=== PATIENT | female | born 1955 | race Caucasian/White ===

== ENCOUNTER 2018-08-11 12:25 | Outpatient (CLI) | payer OTHER, SELFPAY ==
[2018-08-11 13:57] LABS: ALT 23 U/L (12-78); AST 19 U/L (15-37); Albumin 3.7 g/dL (3.4-5.0); Alkaline Phosphatase 61 U/L (46-116); Anion Gap 10.2 mmol/L (3-11); BUN 18 mg/dL (7-18); Bilirubin, Total 0.5 mg/dL (0.2-1.0); CO2 26.8 mmol/L (21.0-32.0); CREATININE 0.81 mg/dL (0.55-1.02); Calcium 9.4 mg/dL (8.5-10.1); Chloride 101 mmol/L (98-107); Cholesterol 207 mg/dL (50-200); Glucose 100 mg/dL (70-100); HDL Cholesterol 85 mg/dL (40-60); LDL CHOLESTEROL 105 mg/dL (<100); Potassium 4.4 mmol/L (3.5-5.1); Sodium 138 mmol/L (136-145); TSH (W/Ref FT4) 0.07 uIU/mL (0.358-3.74); Triglyceride 128 mg/dL (30-150)
[2018-08-11 14:18] LABS: FREE T4 1.53 ng/dL (0.76-1.46)
[2018-08-12 11:28] LABS: Hepatitis C Ab w Rflx HCV PCR Negative (NEGAT)
[2018-08-13 15:14] LABS: Chlamydia Result Negative; GC Result Negative; Specimen Description URINE
== END 2018-08-11 12:45 ==
DX: E03.9 Hypothyroidism, unspecified (principal); R63.4 Abnormal weight loss; Z11.59 Encounter for screening for other viral diseases; Z11.3 Encounter for screening for infections with a predominantly sexual mode of transmission
CPT/HCPCS: 80053; 80061; 83721; 86803; 87491; 87591; 84439; 84443

== ENCOUNTER 2018-10-13 09:59 | Outpatient (CLI) | payer BC, SELFPAY ==
[2018-10-13 15:14] LABS: TSH (W/Ref FT4) 1.23 uIU/mL (0.358-3.74)
== END 2018-10-13 10:19 ==
LOC: LBN 10:00 → LBO 10:01
DX: E03.9 Hypothyroidism, unspecified (principal); G47.00 Insomnia, unspecified
CPT/HCPCS: 36415; 84443

== ENCOUNTER 2019-01-14 02:53 | Outpatient (CLI) | payer BC, SELFPAY ==
[2019-01-14 09:11] LABS: ALT 30 U/L (12-78); AST 19 U/L (15-37); Albumin 3.5 g/dL (3.4-5.0); Alkaline Phosphatase 70 U/L (46-116); Anion Gap 9.2 mmol/L (3-11); BUN 23 mg/dL (7-18); Bilirubin, Total 0.4 mg/dL (0.2-1.0); CO2 29.8 mmol/L (21.0-32.0); CREATININE 0.91 mg/dL (0.55-1.02); Chloride 104 mmol/L (98-107); Cholesterol 265 mg/dL (50-200); Glucose 103 mg/dL (70-100); HDL Cholesterol 94 mg/dL (40-60); LDL CHOLESTEROL 151 mg/dL (<100); Potassium 4.2 mmol/L (3.5-5.1); Sodium 143 mmol/L (136-145); TSH (W/Ref FT4) 3.61 uIU/mL (0.358-3.74); Triglyceride 62 mg/dL (30-150)
== END 2019-01-14 03:13 ==
DX: E03.9 Hypothyroidism, unspecified (principal); E78.5 Hyperlipidemia, unspecified; F32.9 Major depressive disorder, single episode, unspecified
CPT/HCPCS: 36415; 80053; 80061; 83721; 84443

== ENCOUNTER 2019-02-01 01:38 | Outpatient (CLI) | payer BC, SELFPAY ==
--- NOTE | 2019-02-01 07:45 | DI.MAMMO_ITS ---
SYMPTOM/DIAGNOSIS: SCREENING, Z12.31 MAMMOGRAMS: Mammograms were interpreted according to the usual protocol including computer analysis with CAD system, tomosynthesis and C view imaging. Comparison is made with prior examinations. Breast density, Category C. No suspicious microcalcifications are seen. No suspicious masses are seen in the right breast. There are two areas of breast asymmetry, one in the outer left breast on the craniocaudad view and one in the posterior superior left breast on the mediolateral oblique view. These areas should be further evaluated with spot compression views. Ultrasound may be indicated at that time. IMPRESSION: Additional views of the left breast as described above. Category 0. MQSA ASSESSMENT OF FINDINGS: Incomplete: Needs additional imaging evaluation. Category 0. Patient will receive a letter notifying them of these results. Bi-RADS category C. The breasts are heterogeneously dense, which may obscure small masses.
== END 2019-02-01 01:58 ==
DX: Z12.31 Encounter for screening mammogram for malignant neoplasm of breast (principal); R92.8 Other abnormal and inconclusive findings on diagnostic imaging of breast
CPT/HCPCS: 77063; 77067

== ENCOUNTER 2019-02-11 01:32 | Outpatient (CLI) | payer BC, SELFPAY ==
--- NOTE | 2019-02-11 10:35 | DI.COMBO_ITS ---
SYMPTOMS/DIAGNOSIS: F/U MAMMO, TWO AREAS OF BREAST ASYMMETRY LT ADDITIONAL MAMMOGRAPHIC VIEWS LEFT BREAST AND LEFT BREAST ULTRASOUND: Additional images are interpreted according to the usual protocol including tomosynthesis and 2D imaging. Additional views of the left breast and left breast ultrasound are interpreted in conjunction. These examinations were obtained to evaluate questionable areas of asymmetry density or nodularity seen on recent mammogram. Additional mammographic views fail to show a discrete mass. Breast ultrasound shows no evidence of a mass or cyst. CONCLUSION: No specific evidence of malignancy at this time. Follow up unilateral left breast mammogram recommended in 6 months. Category 3. Breast density Category B. MQSA ASSESSMENT OF FINDINGS: Probably benign. Six month follow-up recommended. Category 3. Patient will receive a letter notifying them of these results. BI-RADS category B. There are scattered areas of fibroglandular density.
== END 2019-02-11 01:52 ==
DX: Z12.31 Encounter for screening mammogram for malignant neoplasm of breast (principal); R92.8 Other abnormal and inconclusive findings on diagnostic imaging of breast; N64.59 Other signs and symptoms in breast
CPT/HCPCS: 76642; 77063; 77067

== ENCOUNTER 2019-02-18 11:51 | Outpatient (CLI) | payer BC, SELFPAY ==
[2019-02-18 12:54] LABS: Clarity Sl Cloudy
[2019-02-18 12:55] LABS: Glucose Color Interference mg/dL (Negative); Ketones Color Interference mg/dL (Negative); Leukocyte Esterase Color Interference (Negative); Nitrite Color Interference (Negative)
[2019-02-18 12:56] LABS: Bilirubin Color Interference (Negative); Blood Color Interference (Negative); Urobilinogen Color Interference EU/dL (Up TO 0.2)
[2019-02-18 12:59] LABS: Bacteria Few HPF (Negative); C & S Indicated? Yes; Casts Negative LPF (Negative); Crystals Negative HPF (Negative); Epithelial Cells Moderate HPF (Negative); Mucus Negative (Negative); RBC 20-50 (0-2); WBC 20-50 HPF (0-5)
== END 2019-02-18 12:11 ==
PROVIDERS: Visit Provider Family Medicine
DX: R35.0 Frequency of micturition (principal)
CPT/HCPCS: 81003; 81015; 87086

== ENCOUNTER 2019-08-16 01:21 | Outpatient (CLI) | payer BC, SELFPAY ==
--- NOTE | 2019-08-16 09:50 | DI.MAMMO_ITS ---
EXAM: MG MAMMO DIAGNOSTIC UNI CLINICAL HISTORY: 6 MONTH F/U Z09, R92.8 ABNORMAL FINDINGS TECHNIQUE: Bilateral full field digital CC and MLO mammographic images were obtained with 3D tomosyn thesis and utilizing computer aided detection (CAD). COMPARISON: 02/01/19 and 02/11/19 as well as exams back to 2008. FINDINGS: Left breast is composed of heterogeneously dense fibroglandular tissue, breast density category C. No suspicious mass or suspicious microcalcifications are seen. The previously questioned areas of as ymmetry are not appreciated on the current exam. IMPRESSION: Category 1, negative mammogram. Bilateral screening should be resumed in 6 months. BI-RADS Cat 1 - Negative. Breast Density - Category C - Heterogeneously dense.
== END 2019-08-16 01:41 ==
DX: Z12.31 Encounter for screening mammogram for malignant neoplasm of breast (principal); R92.8 Other abnormal and inconclusive findings on diagnostic imaging of breast; N64.59 Other signs and symptoms in breast
CPT/HCPCS: 77061; 77065; G0279

== ENCOUNTER 2020-04-11 08:18 | Outpatient (CLI) | payer BC, SELFPAY ==
--- NOTE | 2020-04-11 09:45 | DI.RAD_ITS ---
EXAM: XR HAND RT COMPLETE CLINICAL HISTORY: nodule right hand. TECHNIQUE: 2D digital imaging was performed. COMPARISON: No exams were available for comparison FINDINGS: BONES: No acute fracture is present. No bony destructive lesion is seen. JOINTS: Marked osteoarthritis is present characterized by joint space narrowing, subchondral sclerosi s and marginal osteophytes. The findings are most marked at the PIP joint of the index finger and th e DIP joints the middle, ring and little fingers. The metacarpophalangeal joints are well maintained . Mild degenerative changes are seen at the 1st CMC joint characterized by marginal osteophytes. SOFT TISSUE: No suspicious soft tissue calcifications are present. There is soft tissue swelling of the fingers particularly the PIP and DIP joints. IMPRESSION: Severe osteoarthritis of the hand. DATA REPOSITORY: RADIATION DOSE DELIVERED:
== END 2020-04-11 08:38 ==
PROVIDERS: Visit Provider Physician Assistant Surgical
DX: M18.11 Unilateral primary osteoarthritis of first carpometacarpal joint, right hand (principal); M19.041 Primary osteoarthritis, right hand; M25.741 Osteophyte, right hand
CPT/HCPCS: 73130

== ENCOUNTER 2020-04-23 08:30 | Day surgery (SDC) | payer BC, SELFPAY ==
[2020-04-23 08:44] VITALS: BP 125/76; PULSE 71; RESP 16; TEMP 36.4; O2SAT 97
--- NOTE | 2020-04-23 10:23 | SKI_PTH ---
PATIENT: Barbara Richards LOC: [facility] U#:[id number] AGE/SX: 64/F ROOM: RE04/23/[address]: Abelardo Mederos MD : 1955 BED: DIS: 04/23/2020 SPEC #: [id number] RECD: 04/23/20 12:30 STATUS: TIARA REQ #: [id number] ALANA: 04/23/20 10:[address]: Abelardo Mederos DEPT: Surgical Specimen RECD BY: Lashay Devries ENTERED: 04/23/20 12:30 SP TYPE: JAYE ELY DR: Ana Paula Wallis APRN Tissues: 1 - SKIN BIOPSY(SHAVE/PUNCH) Procedures: GROSS AND MICRO LEVEL 4 Comments: [id number]
[2020-04-23] MEDS: Lidocaine 2% Multi-Dose 50 ML VIAL (10:25)
--- NOTE | 2020-04-23 10:39 | W.PM.DSUDISC ---
Discharge Plan Disposition Patient Disposition: HOME Condition: Good Discharge Details Reason For Visit: EXCISION SUBCUTANEOUS MASS R THUMB Attending Provider: Abelardo Mederos Primary Care Provider: Ana Paula Wallis Home Meds and New Rx's Prescriptions: Continued conjugated estrogens 0.625 mg/gram cream 1 applic Vaginal DAILY Qty: 30 RF: 2 clobetasol 0.05 % cream 1 applic TP QAM AND QPM PRN (Reason: vaginitis) 14 Days Qty: 30 RF: 2 Ywkbsdve-Ozmayi-YVJ with vit D 1 EACH tablet 1 ea PO DAILY Qty: 2 RF: 0 scopolamine base 1 mg over 3 days patch 3 day 1 patch TD Q72H PRN (Reason: nausea and vomiting) Qty: 4 RF: 0 acyclovir 5 % ointment 1 applic Topical BID PRN (Reason: cold sores) Qty: 1 RF: 4 levothyroxine 100 mcg tablet 100 mcg PO DAILY Qty: 90 RF: 4 paroxetine HCl [Paxil] 10 mg tablet 10 mg PO DAILY Qty: 90 RF: 4 simvastatin 20 mg tablet 20 mg PO HS Qty: 90 RF: 4 triamcinolone acetonide 0.5 % cream 1 applic Topical dailyprn Qty: 15 RF: 0 Discharge Instructions Additional Instructions: kEEP DRESSINGS DRY AND INTACT R THUMB. May remove dressings on . May shower or bathe and get incision wet. Can then cover incision with band-aid. Don't be concerned if their is some bleeding through the dressing. Follow up with in 2 weeks. Take tylenol or ibuprofen for pain. Referrals: Abelardo Mederos MD [ [facility] STAFF PHYSICIAN] - (f/u in 2 weeks) Activity:: Activity as Tolerated Remove Dressings/Wound Care:: 72 hours Shower/Bathe:: 72 hours Diet:: As Tolerated Discharge Orders Discharge Orders: Discharge Order (Routine); Ordered 04/23/20 Ordered By: Abelardo Mederos DS: Diagnosis Discharge Diagnosis (1) Mass of skin of right thumb: Status: Acute
--- NOTE | 2020-04-23 15:31 | ROE_ITS ---
Date of service: 04/23/20 Time of Service: 12:09 Operative Note Operative Note DATE OF PROCEDURE: 04/23/20 PRE-OP DIAGNOSIS: Subcutaneous mass right thumb POST-OP DIAGNOSIS: same PROCEDURE: Excisional biopsy of subtenons mass right thumb SURGEON: Abelardo Mederos ANESTHESIA: local PATHOLOGY: other COMPLICATIONS: None Patient was transported to: same day Patient's condition: stable Indications: Rebel is a 64-year-old white female who presents with a mass on the dorsal aspect of the IP joint of the right thumb. 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 She does not have any significant pain with moving her thumb. She says that she thinks the mass increases and decreases in size. Is been present for 2-1/2 months. She does remember any particular trauma. She would like to have it removed. I thought it might represent a ganglion cyst. I recommended excisional biopsy to obtain a definitive diagnosis and alleviate her symptoms. Risk complications of the procedure explained patient detail preop. Procedure Description: Patient taken the operating room on 04/23/2020 and placed supine operative table. The right hand was prepped and draped free in usual sterile fashion. I infiltrated around the nodule with 1% Xylocaine solution. I made an incision just proximal to the cuticle of the fingernail of the right thumb. I then brought the incision around the ulnar margin of the mass and then backed around to the radial side and extending distally in the midline. I used a Nikki tourniquet around the proximal thumb. I made the incision full- thickness down to the extensor tendon of the thumb. As the flap of skin with the attached mass was elevated towards the radial side I noted that it was a chelsy id mass of connective tissue. I sharply dissected the mass off the extensor tendon. I then dissected the mass sharply off the overlying skin. The mass was sent for pathologic examination. It was probably a centimeter in diameter. The wound was irrigated with saline solution the wound margins were infiltrated with 0.5% Marcaine with epinephrine solution. Skin is approximated interrupted 4 nyl on sutures. Wounds dressed with Xeroform gauze. The Nikki tourniquet was released hemostasis obtained with pressure. The thumb was dressed with tube gauze. Tolerated procedure well and was discharged to day surgery unit in good condition. Patient was discharged home from day surgery unit with instructions to keep her dressings dry for 72 hours. She was told to expect some oozing of blood through the dressing. She can remove his dressings after 72 hours. After she removes the dressing, she may shower bathe and get incision wet. She can dress incision with a Band-Aid at that point. She will take ibuprofen and Tylenol for pain. She may use the thumb as much as discomfort allows. She should follow-up with Dr. Mederos in 2 weeks.
== END 2020-04-23 11:13 | disposition home or self-care (01) ==
PROVIDERS: Visit Provider Orthopaedic Surgery
PROC: (CPT 26160; principal; 2020-04-23 10:30)
DX: M67.441 Ganglion, right hand (principal)
CPT/HCPCS: 26160; 88305

== ENCOUNTER 2020-07-27 01:53 | Outpatient (CLI) | payer BC, SELFPAY ==
[2020-07-27 09:08] LABS: ALT 25 U/L (14-59); AST 17 U/L (15-37); Albumin 3.6 g/dL (3.4-5.0); Alkaline Phosphatase 50 U/L (46-116); Anion Gap 5.3 mmol/L (3-11); BUN 17 mg/dL (7-18); Bilirubin, Total 0.3 mg/dL (0.2-1.0); CO2 30.7 mmol/L (21.0-32.0); CREATININE 0.92 mg/dL (0.55-1.02); Calculated LDL 150 mg/dL (<100); Chloride 106 mmol/L (98-107); Cholesterol 253 mg/dL (<200); Glucose 100 mg/dL (74-106); HDL Cholesterol 83 mg/dL (40-60); Potassium 4.2 mmol/L (3.5-5.1); Sodium 142 mmol/L (136-145); TSH (W/Ref FT4) 2.27 uIU/mL (0.36-3.74); Total Protein 6.9 g/dL (6.4-8.2); Triglyceride 102 mg/dL (<150)
== END 2020-07-27 02:13 ==
DX: Z00.00 Encounter for general adult medical examination without abnormal findings (principal); E03.9 Hypothyroidism, unspecified; E78.5 Hyperlipidemia, unspecified; F32.9 Major depressive disorder, single episode, unspecified
CPT/HCPCS: 36415; 80053; 80061; 84443

== ENCOUNTER 2020-09-04 11:08 | Outpatient (REF) | payer BC, SELFPAY ==
--- NOTE | 2020-09-04 07:40 | PAPFT_PTH ---
PATIENT: Barbara Richards LOC: [facility] U#:[id number] AGE/SX: 64/F ROOM: RE09/04/[address]: Ana Paula Wallis APRN : 1955 BED: DIS: 09/04/2020 SPEC #: [id number] RECD: 09/04/20 12:53 STATUS: TIARA REVicky #: [id number] ALANA: 09/04/20 07:[address]: Ana Paula Wallis DEPT: [facility] Cytology RECD BY: Lashay Devries Tissues: 1 - CX/ENDOCX FOR PAP SMEARS Procedures: PAP THIN PREP/UVM Screening HPV DNA PROBE Comments: [id number]
== END 2020-09-04 11:28 ==
LOC: LBN 11:08
DX: Z12.4 Encounter for screening for malignant neoplasm of cervix (principal); Z11.51 Encounter for screening for human papillomavirus (HPV)
CPT/HCPCS: 88142; 87624

== ENCOUNTER 2020-09-11 00:24 | Outpatient (CLI) | payer BC, SELFPAY ==
--- NOTE | 2020-09-11 06:45 | DI.MAMMO_ITS ---
EXAM: MG MAMMO SCREENING CLINICAL HISTORY: screening,Z12.39 TECHNIQUE: Mammograms were interpreted according to the usual protocol including computer analysis w [employer] CAD system, tomosynthesis and C-view imaging. COMPARISON: FINDINGS: The breasts are of moderate density with fairly symmetrical distribution of fibroglandular tissue. N o dominant mass or clumped microcalcification is identified in either breast. The current examinatio n it is is compared with previous examinations including January 2019 and there has been no gross inter noe change in appearance in comparison with the prior studies. IMPRESSION: No specific evidence of malignancy at this time. Routine screening examinations are suggested at yea rly intervals in this age group according to the ACS ACR guidelines. BI-RADS Category 1 - Negative Breast Density - Category B - Scattered areas of fibroglandular density
== END 2020-09-11 00:44 ==
DX: Z12.31 Encounter for screening mammogram for malignant neoplasm of breast (principal)
CPT/HCPCS: 77063; 77067

== ENCOUNTER 2021-03-04 02:26 | Outpatient (CLI) | payer MEDICARE, SELFPAY ==
[2021-03-04 12:51] LABS: ALT 22 U/L (14-59); AST 16 U/L (15-37); Albumin 3.8 g/dL (3.4-5.0); Alkaline Phosphatase 57 U/L (46-116); Anion Gap 12.2 mmol/L (3-11); BUN 18 mg/dL (7-18); Bilirubin, Total 0.3 mg/dL (0.2-1.0); CO2 24.8 mmol/L (21.0-32.0); CREATININE 0.9 mg/dL (0.55-1.02); Calculated LDL 126 mg/dL (<100); Chloride 105 mmol/L (98-107); Cholesterol 239 mg/dL (<200); Glucose 118 mg/dL (74-106); HDL Cholesterol 86 mg/dL (40-60); Potassium 4.1 mmol/L (3.5-5.1); Sodium 142 mmol/L (136-145); Triglyceride 139 mg/dL (<150)
== END 2021-03-04 02:27 | disposition home or self-care (01) ==
LOC: LBO 02:26
DX: E03.9 Hypothyroidism, unspecified (principal); R19.7 Diarrhea, unspecified; R63.4 Abnormal weight loss; E78.5 Hyperlipidemia, unspecified
CPT/HCPCS: 36415; 80053; 80061; 84439; 84443

== ENCOUNTER 2021-03-05 15:03 | Outpatient (REF) | payer MEDICARE, SELFPAY ==
[2021-03-05 18:10] LABS: Abs Immature Grans 0.01 10^3/uL (0.0-0.06); Absolute Basophil Count 0.04 10^3/uL (0.0-0.2); Absolute Eosinophil Count 0.03 10^3/uL (0.0-0.7); Absolute Lymphocyte Count 2.39 10^3/uL (1.2-3.4); Absolute Monocyte Count 0.44 10^3/uL (0.1-0.8); Absolute Neutrophil Count 4.37 10^3/uL (1.2-6.7); Basophils % 0.5; Eosinophils % 0.4; HCT 41.9 % (36.0-46.0); HGB 13.4 g/dL (11.2-15.7); Immature Grans % 0.1; Lymphocytes % 32.8; MCH 29.3 pg (27.0-33.0); MCV 91.7 fL (80-95); MPV 10.1 fL (8.0-11.0); Neutrophils % 60.2; Nucleated RBC 0 %; Platelet Count 345 10^3/uL (130-400); RBC 4.57 10^6/uL (3.93-5.22); RDW 12.6 % (11.7-14.6); RDW-SD 42.2 fL; WBC 7.28 10^3/uL (4.4-10.8)
[2021-03-05 18:33] LABS: ALT 22 U/L (14-59); AST 17 U/L (15-37); Albumin 4.2 g/dL (3.4-5.0); Alkaline Phosphatase 59 U/L (46-116); Anion Gap 9.4 mmol/L (3-11); BUN 11 mg/dL (7-18); Bilirubin, Total 0.4 mg/dL (0.2-1.0); C-Reactive Protein 0.12 mg/dL (0.0-0.3); CO2 27.6 mmol/L (21.0-32.0); CREATININE 0.8 mg/dL (0.55-1.02); Calcium 9.3 mg/dL (8.5-10.1); Chloride 104 mmol/L (98-107); Glucose 91 mg/dL (74-106); Potassium 4.2 mmol/L (3.5-5.1); Sodium 141 mmol/L (136-145); TSH 0.59 uIU/mL (0.36-3.74); Total Protein 7.5 g/dL (6.4-8.2)
== END 2021-03-05 15:04 | disposition home or self-care (01) ==
LOC: LBN 15:03
PROVIDERS: Visit Provider Emergency Medicine
DX: E03.9 Hypothyroidism, unspecified (principal); R63.4 Abnormal weight loss; R19.7 Diarrhea, unspecified
CPT/HCPCS: 80053; 84443; 85025; 86140

== ENCOUNTER 2021-03-06 15:15 | Outpatient (REF) | payer MEDICARE, SELFPAY ==
[2021-03-06 13:30] LABS: C Diff PCR Negative (Negative)
[2021-03-06 23:13] LABS: Campylobacter PCR Negative (Negative); Salmonella PCR Negative (Negative); Shiga Toxin PCR Negative (Negative); Shigella/Enteroinvasive Ecoli Negative (Negative)
== END 2021-03-06 15:16 | disposition home or self-care (01) ==
LOC: LBN 15:15
PROVIDERS: Visit Provider Emergency Medicine
DX: R19.7 Diarrhea, unspecified (principal)
CPT/HCPCS: 87329; 87493; 87505

== ENCOUNTER → 2021-04-16 11:29 | Outpatient (BNVA) | payer MEDICARE, SELFPAY | PROVIDERS: Visit Provider Surgery | DX: Z12.11 Encounter for screening for malignant neoplasm of colon (principal); Z12.12 Encounter for screening for malignant neoplasm of rectum ==

== ENCOUNTER 2021-05-08 06:16 | Day surgery (SDC) | payer MEDICARE, SELFPAY ==
--- NOTE | 2021-05-07 14:10 | W.ANESPRE ---
General Info Date of Service Date Performed: 05/08/21 Height: 5 ft 4 in Weight: 57 kg Body Mass Index (BMI): 21.5 Surgical Procedure: Operation Date: 05/08/21 07:35 Proposed Procedures Side Surgeon p Colonoscopy Inocencia Zayas MD Meds Allergies and Home Medications Allergies Allergy/AdvReac Type Severity Reaction Status Date / Time No Known Allergies Allergy Verified 05/08/21 06:32 Home Medication Medication Instructions Recorded Jirbrbus-Xkzwqe-EJO with vit D 1 ea PO DAILY #2 12/19/15 scopolamine base 1 mg over 3 days 1 patch TD Q72H PRN #4 each 08/20/18 transdermal patch acyclovir 5 % topical ointment 1 applic TOPICAL BID PRN #1 tube 09/09/18 conjugated estrogens 0.625 mg/gram 1 applic VAGINAL DAILY #30 gm 01/19/19 vaginal cream clobetasol 0.05 % topical cream 1 applic TP QAM AND QPM PRN 14 02/02/20 Days #30 gm triamcinolone acetonide 0.5 % 1 applic TOPICAL dailyprn #15 gm 09/04/20 topical cream simvastatin 20 mg tablet 20 mg PO HS #90 tab-cap 02/05/21 levothyroxine 75 mcg tablet 75 mcg PO DAILY #90 tab 03/05/21 paroxetine HCl 10 mg tablet 15 mg PO DAILY #90 tab-cap 04/03/21 bisacodyl 5 mg tablet,delayed 5 mg PO ONCE #4 tab 04/16/21 release polyethylene glycol 3350 17 gram 255 g PO DAILY #15 ea 04/16/21 oral powder packet cetirizine [Zyrtec] 10 mg PO BID 05/07/21 Current Visit Medications: Current Medications Generic Name Dose Route Start Last Admin Trade Name Freq PRN Reason Stop Dose Admin Ringer's Solution 1,000 mls @ 80 mls/hr 05/08/21 06:00 IV 06/06/21 23:59 INFUSION KATHERINE IV Miscellaneous Supplies 1 each 05/08/21 06:00 Iv Access IV 06/06/21 23:59 DIRECTED KATHERINE Sodium Chloride 0 ml 05/08/21 06:00 Normal Saline Flush 10 Ml Syr IV 06/06/21 23:59 PRN PRN Sodium Chloride 0 ml 05/08/21 06:00 Normal Saline 10 Ml Vial IJ 06/06/21 23:59 DIRECTED PRN Sterile Water 0 ml 05/08/21 06:00 Water,Injection,Sterile 10 Ml Vial IJ 06/06/21 23:59 DIRECTED PRN PFSH Active Problems Active Problems: Problem Status Onset Code Chronic idiopathic urticaria L50.1 Chronic diarrhea K52.9 Diarrhea R19.7 Weight loss R63.4 Dermatitis L30.9 Anxiety and depression F41.9, F32.9 Visit for gynecologic examination Z01.419 Mass of skin of right thumb R22.31 Ganglion cyst of finger of right hand M67.441 Weight loss R63.4 HSV infection 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 Lichen sclerosus 07/09/15 L90.0 Hypothyroidism E03.9 Hyperlipidemia E78.5 Medical History Medical History Anxiety and depression Chronic diarrhea Chronic idiopathic urticaria Dermatitis HSV infection (12/07/13) Hyperlipidemia Hypothyroidism Lichen sclerosus (07/09/15) Non-neoplastic nevus Visit for gynecologic examination Weight loss Surgical History Surgical History section X2 Tobacco Smoking/Tobacco Use Status: Never Second hand exposure: Yes Alcohol Alcohol Intake: current Alcohol intake frequency: a few times a week Alcohol type: beer, wine and hard liquor Substance Use Substance use: Daily Substance use type: marijuana Vital Signs and Lab Results Vital Signs Most Recent Vital Signs in EMR: Temp Pulse Resp BP Pulse Ox 36.7 C 58 L 16 132/69 97 05/08/21 06:19 05/08/21 06:19 05/08/21 06:19 05/08/21 06:19 05/08/21 06:19 Lab Results Blood Type / Crossmatch: No Data to Display Complete Blood Count: No Data to Display Complete Metabolic Panel: No Data to Display Liver Function Panel: No Data to Display Coagulation Panel: No Data to Display Cardiac Panel: No Data to Display Arterial Blood Gas: No Data to Display Venous Blood Gas: No Data to Display Pancreas Panel: No Data to Display Thyroid Panel: No Data to Display Infectious Disease: No Data to Display Blood Cultures: No Data to Display Toxicology Panel: No Data to Display Anesthesia Assessment and Plan Anesthesia History Personal History: No History of Anesthesia Complications Family History: No Family History of Anesthesia Complications Exercise Tolerance Exercise Tolerance: Metabolic Equivalents>4 Cardiac & Pulmonary Exam Cardiac Exam: Normal S1/S2 Heart Sounds Pulmonary Exam: Clear Bilateral Breath Sounds Airway Exam Known Difficult Airway: No Mallampati Class: 2 Mouth Opening: Normal (> 3cm) Thyromental Distance: Greater than 3 cm Neck Range of Motion: Full ROM Neck Circumference: Normal Teeth Condition: Normal Dentition ASA Classification ASA Score: ASA 2 Emergency Case?: No NPO Status NPO Status: NPO Clears >2 hours, Solids >8 hours Anesthesia Plan Resuscitation Status: Full Code Anesthesia Technique: General Anesthesia Airway Planned: Natural Airway Monitors Used: Standard Monitors Preoperative Comments:: 65 yo female for colo (for screening and diarrhea), last was 2008 - unremarkable. PMHx for hypothyroid (on levothyroxine).
[2021-05-08 06:19] VITALS: BP 132/69; PULSE 58; RESP 16; TEMP 36.7; O2SAT 97
--- NOTE | 2021-05-08 06:39 | W.COLOREPORT ---
Date of service: 05/08/21 Time of Service: : Colonoscopy Report Date of procedure: 05/08/21 Pre-op diagnosis general: Colon Cancer Screening Post-op diagnosis procedure note: other (colorectal polyp and diverticulosis) Procedure: Colonoscopy with polypectomy Surgeon: Inocencia Zayas Anesthesia Type: General:No Airway (ASA 2/ Cornelio Ramírez CRNA) Estimated blood loss (mL): 3 Pathology: other (Ascending polyp) Complications: None Disposition: same day Indications: Mrs Richards is a pleasant 65-year-old female who is here today to discuss a colonoscopy. Her last colonoscopy was in 2007 and was normal. She has had both Covid vaccines and after her second 1 in January she did develop some diarrhea. At the same time she also had her thyroid checked and her medications were adjusted. Since her medications have been adjusted her diarrhea has actually gotten slightly better. It is now infrequent that she has about. She has not been able to pinpoint a specific food that causes her to have diarrhea. She denies any bleeding. Risks, benefits and complications have been reviewed. Complications include but are not limited to bleeding, pain, perforation, missed small lesion/polyp, sore throat, aspiration and adverse reaction to the medications. Questions were entertained and answered to their satisfaction and they wished to proceed. No guarantees were given or implied. Prep: Miralax/Dulcolax Procedure Start Time: : Procedure End Time: :52 Retraction Time: 12 minutes Findings: One small <10 mm polyp mild diverticulosis of the sigmoid colon Procedure Description: After informed consent was obtained the patient was taken to the procedure room and placed in a left decubitous position. Monitors were applied and a time out was done. The patients name, date of , procedure, allergies to medications and metal in their body was reviewed. The patient was then sedated. Once sedated and comfortable a rectal exam was done. External exam was normal. Internal exam revealed a normal sphincter tone and no palpable masses. The scope was then introduced and retro-flexed. No internal hemorrhoids, polyps or masses were identified on retro-flexion. The scope was then advanced to the cecum without difficulty. The ileocecal vlave and appendiceal orifice were identified. The prep was good. The scope was then slowly retracted over 12 minutes back into the rectum. Polyps were removed with cold forceps in the ascending colon. There was mild sigmoid diverticulosis noted. The scope was removed and the patient was woken up and taken back to Same day surgery in stable condition. The patient tolerated the procedure well and there were no immediate complications. Follow up: The patient should follow up in 5-10 years unless they develop changes in bowel habits or other new gastrointestinal complaints.
--- NOTE | 2021-05-08 06:40 | W.PM.DSUDISC ---
Discharge Plan Disposition Patient Disposition: HOME Condition: Good Discharge Details Reason For Visit: Colonoscopy Attending Provider: Inocencia Zayas Primary Care Provider: Ana Paula Wallis Home Meds and New Rx's Prescriptions: Continued conjugated estrogens 0.625 mg/gram cream 1 applic Vaginal DAILY Qty: 30 RF: 2 clobetasol 0.05 % cream 1 applic TP QAM AND QPM PRN (Reason: vaginitis) 14 Days Qty: 30 RF: 2 levothyroxine [Synthroid] 75 mcg tablet 75 mcg PO DAILY Qty: 90 RF: 3 paroxetine HCl [Paxil] 10 mg tablet 15 mg PO DAILY Qty: 90 RF: 4 triamcinolone acetonide 0.5 % cream 1 applic Topical dailyprn Qty: 15 RF: 3 simvastatin 20 mg tablet 20 mg PO HS Qty: 90 RF: 4 Ovleolsz-Flfjhx-IQJ with vit D 1 EACH tablet 1 ea PO DAILY Qty: 2 RF: 0 scopolamine base 1 mg over 3 days patch 3 day 1 patch TD Q72H PRN (Reason: nausea and vomiting) Qty: 4 RF: 0 acyclovir 5 % ointment 1 applic Topical BID PRN (Reason: cold sores) Qty: 1 RF: 4 Zyrtec 10 mg Capsule 10 mg PO BID RF: 0 Discontinued bisacodyl [Dulcolax (bisacodyl)] 5 mg tablet,delayed release (DR/EC) 5 mg PO ONCE Qty: 4 RF: 0 polyethylene glycol 3350 17 gram powder in packet 255 g PO DAILY Qty: 15 RF: 0 Discharge Instructions Instructions: Diverticulosis (DC), Colorectal Polyps (DC) Additional Instructions: Findings: one small polyp mild diverticulosis Follow up: 5 years Please call if you develop: fevers >101.5 Nausea or Vomiting Abdominal pain that is not transient Rectal bleeding that is more then a tbsp A hard abdomen and inability to pass gas DAY SURGERY UNIT POST ENDOSCOPY INSTRUCTIONS Instructions for everyone who is given Anesthesia: For your safety, please do the following for the next 24 Hours: a. Do not drive or operate dangerous equipment b. Do not drink alcohol beverages or use any recreational drugs for the first 24 hours or while taking pain medications. The medications in your body may have a reaction that can be dangerous. c. Do not make any important decisions or sign any important papers 1. Generally there are no restrictions on your activity after a day or so has gone by, but you may feel a bit fatigued for a few days. 2. After you arrive home you may have a light meal and return to a normal diet as you can tolerate it without feeling sick to your stomach. 3. After surgery, you may feel pain or discomfort. This should be only transient, but if it persists please contact your doctor. 4. If there are any questions regarding the findings of your procedure, please feel free to contact your doctor. 6. If you are unable to contact your doctor with a problem, contact the hospital at [phone]. 7. Continue all your regular medications unless directed otherwise. I understand the above instructions and have no questions. Signature of Patient or Responsible Adult Escort Date/Time Name of Responsible Adult Escort Signature of Nurse Date/Time Activity:: Activity as Tolerated Diet:: High fiber Discharge Orders Discharge Orders: Discharge Order (Routine); Ordered 05/08/21 Ordered By: Inocencia Zayas
[2021-05-08] MEDS: Lactated Ringers 1,000 ML 80 ML IV (06:45)
[2021-05-08 06:51] VITALS: BMI 21.5
--- NOTE | 2021-05-08 06:52 | W.ANESPOSTOP ---
Postoperative Evaluation Date, Time and Location Date Performed: 05/08/21 Time Performed: 08:08 Patient Location: Day Surgery Unit Vital Signs Most Recent Imported Vital Signs: Most Recent Vital Signs Temp Pulse Resp BP Pulse Ox 36.7 C 58 L 16 132/69 97 05/08/21 06:19 05/08/21 06:19 05/08/21 06:19 05/08/21 06:19 05/08/21 06:19 Most Recent Manually Entered Vital Signs: Adult Blood Pressure: 113/58 Heart Rate: 50 Respirations: 15 Oxygen Saturation (%): 100 Temperature (C): 36.3 C Pain Score (0-10 Scale): 0 Assessment Mental Status: Awake (Alert & Oriented to Patient Baseline) Airway and Respiratory Function: Patent airway with normal (patient baseline) respiratory exam Cardiovascular Function: Hemodynamically Stable Hydration Status: Adequately Hydrated Nausea & Vomiting: No Nausea or Vomiting Pain: Pt. Denies Any Pain Peripheral Nerve Block: Patient did not receive a nerve block
--- NOTE | 2021-05-08 07:40 | BOWEL_PTH ---
PATIENT: Barbara Richards LOC: [facility] U#:[id number] AGE/SX: 65/F ROOM: RE05/08/[address]: Inocencia Zayas MD : 1955 BED: DIS: 05/08/2021 SPEC #: [id number] RECD: 05/08/21 12:50 STATUS: TIARA REQ #: [id number] ALANA: 05/08/21 07:[address]: Inocencia Zayas DEPT: Surgical Specimen RECD BY: Lashay Devries ENTERED: 05/08/21 12:51 SP TYPE: Bowel OTHR DR: Ana Paula Wallis APRN Tissues: 1 - BIOPSY BOWEL Procedures: GROSS AND MICRO LEVEL 4 Comments: [id number]
[2021-05-08 08:00] VITALS: BP 113/58; PULSE 50; RESP 15; TEMP 36.3; O2SAT 100
[2021-05-08 08:12] VITALS: BP 113/58; PULSE 50; RESP 15; TEMPC 36.3; O2SAT 100
[2021-05-08 08:30] VITALS: BP 131/73; PULSE 54; RESP 17; TEMP 36.7; O2SAT 97
== END 2021-05-08 08:47 | disposition home or self-care (01) ==
PROVIDERS: Visit Provider Surgery
PROC: 0DJD8ZZ Inspection of Lower Intestinal Tract, Via Natural or Artificial Opening Endoscopic (ICD-10-PCS; CPT 45378; principal; 2021-05-08 07:30)
DX: Z12.11 Encounter for screening for malignant neoplasm of colon (principal); D12.2 Benign neoplasm of ascending colon; K57.30 Diverticulosis of large intestine without perforation or abscess without bleeding
CPT/HCPCS: 45380; 88305; J2001

== ENCOUNTER 2021-09-12 00:03 | Outpatient (CLI) | payer MEDICARE, SELFPAY ==
--- NOTE | 2021-09-12 07:42 | DI.MAMMO_ITS ---
Exam(s) MAMMO SCREENING EXAM: MAMMO SCREENING CLINICAL HISTORY: screening,z12.39 TECHNIQUE: Bilateral full field digital CC and MLO mammographic images were obtained with 3D tomosyn thesis and utilizing computer aided detection (CAD). COMPARISON: Available for comparison. FINDINGS: Masses/Architectural Distortion: There are focal areas of asymmetric breast tissue in the upper and o uter quadrant of the left breast. Microcalcifications: No suspicious pleomorphic-type are seen. Skin Thickening/Nipple Retraction: None. IMPRESSION: 1. Focal asymmetric breast tissue in the upper-outer quadrant of the left breast. 2. Spot compression views are requested for further evaluation. Ultrasound may be indicated at that time. BI-RADS Category 0 - Assessment Incomplete: Need additional imaging evaluation Breast Density - Category C - Heterogeneously dense Breast density category C or D implies that the patient has dense breast tissue. Dense breast tissue is very common and is not abnormal but dense breast tissue can make it harder to find cancer on a ma mmogram. Also, dense breast tissue may increase their breast cancer risk. This information about the result of the mammogram report was provided to the patient to raise their awareness. Use this report when you speak with the patient about their risks for breast cancer, which includes their family hist ory. At that time, you may recommend for more screening tests (Ultrasound or MRI) as they might be us eful based on their risk. A negative radiographic report should not delay biopsy if a dominant or clinically suspicious mass is present. Up to ten percent of cancers are not identified on mammography. A negative report may reinforce clinical impression. Adenosis and dense breasts may obscure an underlying neoplasm. False positive reports average 6 to 10%. Patient will receive a letter notifying them of these results.
== END 2021-09-12 00:23 ==
DX: Z12.31 Encounter for screening mammogram for malignant neoplasm of breast (principal); R92.8 Other abnormal and inconclusive findings on diagnostic imaging of breast
CPT/HCPCS: 77063; 77067

== ENCOUNTER 2021-09-18 01:01 | Outpatient (CLI) | payer MEDICARE, SELFPAY ==
--- NOTE | 2021-09-18 | DI.US_ITS ---
Exam(s) MG MAMMO SCREEN CALL BACK UNI US BREAST LT LIMITED EXAM: MG MAMMO SCREEN CALL BACK UNI and U/S breast LT limited CLINICAL HISTORY: ASYMMETRIC BREAST TISSUE LEFT BREAST. TECHNIQUE: Craniocaudal and mediolateral oblique Full Field Digital Mammography views of the left br east with Computer Aided Diagnosis followed by Tomosynthesis and left breast ultrasound. COMPARISON: Comparison is made with prior examinations. FINDINGS: Mammography/Tomosynthesis: Masses/Architectural Distortion: None seen. Microcalcifictions: No suspicious pleomorphic-type are seen. Skin Thickening/Nipple Retraction: None. Left breast US: The upper outer quadrant of the left breast was evaluated sonographically. Echotexture: Normal appearance of the glandular tissue. Shadowing: No suspicious foci. Cyst: Simple cysts are seen at the 1 and 2 o'clock positions of the left breast 2 cm from the nipple. Solid lesions: None seen. Ductal dilation: None. IMPRESSION: 1. No evidence of malignancy is noted. 2. Unless there is more urgent need, follow-up screening mammography is recommended, as per [place] guidelines. 3. The findings were discussed with the patient on the date of the examination. BI-RADS Category 2 - Benign Findings Breast Density - Category C - Heterogeneously dense Breast density Category C or D implies that the patient has dense breast tissue. Dense breast tissue can make it harder to find cancer on a mammogram. Dense breast tissue is also associated with an incr eased risk of breast cancer. This information about the result of the mammogram report was provided to the patient to raise their awareness. Use this report when you speak with the patient about their risks for breast cancer, which includes their family history. At that time, you may recommend additional screening tests (Ultrasoun d or MRI) as these tests may add significant information. A negative radiographic report should not delay biopsy if a dominant or clinically suspicious mass is present. Up to ten percent of cancers are not identified on mammography. A negative report may reinforce clinical impression. Adenosis and dense breasts may obscure an underlying neoplasm. False positive reports average 6 to 10%. Patient will receive a letter notifying them of these results.
== END 2021-09-18 01:21 ==
DX: R92.8 Other abnormal and inconclusive findings on diagnostic imaging of breast (principal); Z12.31 Encounter for screening mammogram for malignant neoplasm of breast
CPT/HCPCS: 76642; 77063; 77067

== ENCOUNTER 2021-10-01 17:05 | Outpatient (REF) | payer MEDICARE, SELFPAY ==
[2021-10-01 16:26] LABS: TSH (W/Ref FT4) 5.61 uIU/mL (0.36-3.74)
[2021-10-01 17:12] LABS: FREE T4 1.06 ng/dL (0.76-1.46)
== END 2021-10-01 17:06 | disposition home or self-care (01) ==
LOC: LBN 17:05
DX: E03.9 Hypothyroidism, unspecified (principal); F41.9 Anxiety disorder, unspecified
CPT/HCPCS: 84439; 84443

== ENCOUNTER 2021-11-02 11:06 | Outpatient (REF) | payer MEDICARE, SELFPAY ==
[2021-11-02 11:28] LABS: HGB 13.1 g/dL (11.2-15.7); MCH 29.2 pg (27.0-33.0); MCHC 31.2 % (32.0-36.0); MCV 93.8 fL (80-95); MPV 9.3 fL (8.0-11.0); Platelet Count 371 10^3/uL (130-400); RBC 4.48 10^6/uL (3.93-5.22); RDW 12.3 % (11.7-14.6); RDW-SD 42.7 fL; WBC 10.95 10^3/uL (4.4-10.8)
[2021-11-02 11:41] LABS: INR 0.9 (0.9-1.1); PTT Activated 25.6 sec (21.0-27.5); Prothrombin Time 9.5 sec (9.3-11.0)
[2021-11-02 11:59] LABS: D-Dimer 1380 ng/mlFEU (<500)
== END 2021-11-02 11:07 | disposition home or self-care (01) ==
LOC: LBN 11:06
PROVIDERS: Visit Provider Nurse Practitioner Family
DX: M79.89 Other specified soft tissue disorders (principal)
CPT/HCPCS: 36415; 85027; 85379; 85610; 85730

== ENCOUNTER → 2021-11-05 02:50 | Outpatient (CLI) | payer MEDICARE, SELFPAY ==
--- NOTE | 2021-11-05 07:00 | DI.US_ITS ---
Exam(s) US LOWER EXTREMITY VENOUS LT EXAM: US LOWER EXTREMITY VENOUS LT CLINICAL HISTORY: Question of significant DVT with elevated D-Dimer,PAIN,SWELLING LT LOWERLEG TECHNIQUE: Left lower extremity venous ultrasound performed using grayscale, color-flow, and spectra l Doppler analysis. COMPARISON: No exams were available for comparison FINDINGS: The left common femoral, femoral and popliteal veins demonstrate normal compressibility, augmentation , and color Doppler. The posterior tibial veins are patent. The saphenofemoral junction is unremarka ble. There is a complex fluid collection in the popliteal fossa tracking along inferiorly into the c mcfp. This likely reflects a ruptured popliteal cyst. The entire collection measures approximately 1 2 cm in length. The soft tissues are unremarkable. IMPRESSION: 1. No DVT. 2. Findings suggestive of a ruptured popliteal cyst. DATA REPOSITORY:
[2021-11-05 10:24] LABS: CREATININE 0.9 mg/dL (0.55-1.02)
[2021-11-05 10:45] LABS: TSH (W/Ref FT4) 2.26 uIU/mL (0.36-3.74)
[2021-11-05] MEDS: Omnipaque 350 MG/ML 100 ML BTL IJ (12:20)
--- NOTE | 2021-11-05 12:22 | DI.CT_ITS ---
Exam(s) CT CHEST PE CTA EXAM: CT CHEST PE CTA CLINICAL HISTORY: R/O PE,ELEVATED D DIMER,. TECHNIQUE: Imaging Protocol: Axial CT angiography was performed with multi-slice acquisition and mu lti-planar and/or 3D reconstructions. CONTRAST MATERIAL: Intravenous: Omnipaque 350 Contrast volume:100 mL COMPARISON: No exams were available for comparison FINDINGS: Tracheobronchial tree: Patent where visualized. Pulmonary parenchyma: No consolidation or dominant measurable mass. There is dependent atelectasis an d/or scarring bilaterally. Pulmonary Arteries: No evidence of filling defect to suggest pulmonary emboli. Mediastinum and Mady: No dominant adenopathy or fluid collection. The esophagus is unremarkable. Pleura: No effusion or pneumothorax. Heart: Cardiomegaly. Mild coronary artery calcification. No pericardial effusion. Aorta: Thoracic aorta non-dilated. No evidence of dissection. Upper abdomen: Unremarkable. Soft tissues: Unremarkable. Bones: Within normal limits for the patient's age. IMPRESSION: No evidence of pulmonary embolism, thoracic aortic dissection or aneurysm. RADIATION DOSE DELIVERED: 332.85mGy.cm Total DLP DATA REPOSITORY: All CT scans at this facility are submitted to the National Radiology Data Registry (NRDR) Dose Index Registry (DIR) with the [employer] (ACR). RADIATION OPTIMIZATION: All CT scans at this facility use at least one of these dose optimization te chniques: automated exposure control; mA and/or kV adjustment per patient size (includes targeted exa ms where dose is matched to clinical indication); or iterative reconstruction.
== END ==
DX: M79.662 Pain in left lower leg (principal); M79.89 Other specified soft tissue disorders; R79.89 Other specified abnormal findings of blood chemistry; I51.7 Cardiomegaly; M66.0 Rupture of popliteal cyst; R79.1 Abnormal coagulation profile; E03.9 Hypothyroidism, unspecified; Z01.812 Encounter for preprocedural laboratory examination
CPT/HCPCS: 71275; 82565; 84443; 93971; J3490

== ENCOUNTER → 2022-09-03 11:53 | Outpatient (CLI) | payer MEDICARE, SELFPAY ==
--- NOTE | 2022-09-03 10:45 | DI.RAD_ITS ---
Exam(s) XR FOOT LT COMPLETE EXAM: XR FOOT LT COMPLETE CLINICAL HISTORY: PAIN IN LEFT FOOT--M79.672. TECHNIQUE: 2D digital imaging was performed of the left foot. Three images were obtained. AP, obli que and lateral views were obtained. COMPARISON: No exams were available for comparison FINDINGS: BONES: No acute fracture is present. No bony destructive lesion is seen. There is a tiny plantar calc aneal spur. JOINTS: No dislocation present. There are mild degenerative changes present. SOFT TISSUE: Normal. IMPRESSION: No evidence of an acute or healing fracture or dislocation. No acute abnormality. DATA REPOSITORY: RADIATION DOSE DELIVERED:
--- OUTSIDE RECORDS SUMMARY | 2022-09-03 12:11 | XMS_ITS | Encounter Summary ---
:1955 Author Organization [facility] Address [address] [place] [address] Care Team Providers Name Role Phone Bimal Ana Paula Sb SHIP PROPELLER FINISHER Primary Care Provider Encounter Details Date Type Department Care Team Description 03/06/2021 Lab Requisition [facility] Outr Resulting Lab, Pathology & Laboratory Provider [facility] [address] [place] [address] [id number] Social History Tobacco Use Types Packs/Day Years Used Date Smoking Tobacco: Never Assessed Sex Assigned at Date Recorded Not on file documented as of this encounter Plan of Treatment Not on filedocumented as of this encounter Procedures Procedure Name Priority Date/Time Associated Comments Diagnosis GIARDIA AND Routine 03/06/2021 10:50 Results for this CRYPTOSPORIDIUM ANTIGENS EDT pro cedure are in the results section. documented in this encounter Results GIARDIA AND CRYPTOSPORIDIUM ANTIGENS (03/06/2021 10:50 EDT) Component Value Ref Range Test Analysis Performed Pathologis t Method Time At Signature Giardia and Cryptosporidium Cryptosporidium [facility] DICAL Cryptosporidium Antigen Neg and Antigen Neg and 1 11:52 CE NTER Giardia Antigen Giardia Antigen EDT LABORATO RY Neg Neg SERVICES Specimen Anatomical Collection Method Collection Time Receive d Time (Source) Location / / Volume Laterality Feces SPECIMEN FROM Stool Collect / 03/06/2021 10:50 021 RECTUM / Unknown Unknown EDT 17:33 EDT Provider Outr Resulting Lab MICROBIOLOGY - GENERAL ORD ERABLES Performing Organization Address City/State/[facility] Code Phon e Number [facility] [address] [place] [address] SERVICES documented in this encounter Visit Diagnoses Not on filedocumented in this encounter Care Teams Principal Cloud Architect Relationship Specialty Start Date End Date Ana Paula Wallis, SHIP PROPELLER FINISHER PCP - General 04/23/20 [address] [place] [address] documented as of this encounter
--- OUTSIDE RECORDS SUMMARY | 2022-09-03 12:11 | XMS_ITS | Encounter Summary ---
:1955 Author Organization [facility] [place] [address] Care Team Providers Name Role Phone Caty Lake MD Primary Care Provider Reason for Visit Reason Comments Leg Swelling right leg Encounter Details Date Type Department Care Team Description 08/08/2011 Office Visit Vascular Surgery at Heath Gallo MD Leg edema (Primary Dx) [facility] [address] [facility] VASCULAR SURGERY [place], [place] [phone] Social History Tobacco Use Types Packs/Day Years Used Date Smoking Tobacco: Former Comments: minimal for one year Sex Assigned at Date Recorded Not on file documented as of this encounter Last Filed Vital Signs Vital Sign Reading Time Taken Comments Blood Pressure 120/70 08/08/2011 3:50 PM EDT left arm Pulse 74 08/08/2011 3:50 PM EDT Temperature - - Respiratory Rate - - Oxygen Saturation 96% 08/08/2011 3:50 PM EDT Inhaled Oxygen Concentration - - Weight 55.3 kg (122 lb) 08/08/2011 3:50 PM EDT Height 162.6 cm (5' 4) 08/08/2011 3:50 PM EDT Body Mass Index 20.94 08/08/2011 3:50 PM EDT documented in this encounter Progress Notes Heath Gallo MD - 08/14/2011 8:48 AM EDT OUTPATIENT VASCULAR SURGERY CONSULTATION Reason for Visit: Right leg edema History of Present Illness: Ms Richter presents for evaluation of right lower leg and foot edema. Shehas noted this for several months. She states it is generally worse at the end of the day, and better in the morning when she gets out of bed, other michelle on one occasion when she 'had been drinking' andgot up in the night to go to the bathroom and noted the leg was swollen. She states the swelling is p ainless. Denies other symptoms, leg is normally functional. Otherwise relatively healthy. She statesshe has had an 'ultrasound' but was told she needed a 'vascular ultrasound' Atherosclerotic Risk Factors: (n) DM (n) HTN (n) Hyperlipidemia (n) Tobacco Other Past Medical History/Risk Factors: (n) Previous OH (n) Angina (n) CHF (n) Arrythmia (n) COPD Hypothyroidism Depression Review of Systems: Constitutional (weight change, fever) - Denies Neuro (dizziness, seizures, numbness, tingling) - Denies Eyes (vision) - Denies Ears, nose, throat (hearing) - Denies Cardiovascular (CP) - Denies Respiratory (SOB) - Denies GI (abd pain, nausea, emesis, blood in stool) - Denies (hematuria, dysuria, frequency) - Denies Muscoloskeletal (extremity pain, weakness) - Denies Skin (ulcers, rashes) - Denies Functional Status/Social Hx: Lives at home, employed, Drives Car and 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 Her Own Shopping, Denies Tobacco Use, Occasional EthOH Family Hx: Negative for Thrombosis, Bleeding Disorders Physical Exam: General - NAD, appears stated age Neuro - Alert and Oriented, Motor Sensory grossly intact Skin - No prominent markings or lesions Ear, Nose, Throat - No masses, No lesions Cardiac - RRR, no murmurs Lungs - Clear Abd - Soft, NT, ND, No palpable pulsatile masses Extremities - Warm, pink, mild edema (non-pitting), brisk capillary refill Vascular Exam: R L Carotid 2/2 bruit () 2/2 bruit () Radial 2/2 2/2 Femoral 2/2 2/2 Popliteal 2/2 2/2 DP 2/2 2/2 PT 2/2 2/2 Labs: None Studies: none Assessment and Plan: Painless, mild intermittent right leg edema. No evidence of significant PAD, donot suspect DVT given history. Will obtain venous valvular incompetence study and see in follow-up documented in this encounter Plan of Treatment Not on filedocumented as of this encounter Results LE Unilateral Valvular Incomp Study (09/16/2011 3:06 PM EST) [facility] Method Time Signature VB Text VASCUBASE Report Department: Vascular Surgery Lab Patient: [id number] (BARBARA RICHARDS) CPT Code: 06102 ICD-9: 782.3 Referring Physician: HEATH GALLO Indication: right lower extremity swelling ICD9 Diagnosis Code: 782.3 Findings: Segment Common Femoral Vein ?Reflux?: Competent ?Patency?: Yes Femoral Vein Thigh ?Reflux?: Competent ?Patency?: Yes Popliteal ?Reflux?: Competent ?Patency?: Yes Posterior Tibial Vein ?Reflux?: Competent ?Patency?: Yes Great Saphenous Vein, Near SFJ ?Reflux?: Competent ?Patency?: Yes ?Diameter (mm): 7.3 ?Depth (mm): 9.5 Great Saphenous, Upper Thigh ?Reflux?: Competent ?Patency?: Yes ?Diameter (mm): 4.7 ?Depth (mm): 8.9 Great Saphenous Vein, Mid Thigh ?Reflux?: Competent ?Patency?: Yes ?Diameter (mm): 4.3 ?Depth (mm): 10.2 Great Saphenous Vein, Lower Thigh ?Reflux?: Competent ?Patency?: Yes ?Diameter (mm): 4.2 ?Depth (mm): 8.4 Great Saphenous Vein, ??Knee ?Reflux?: Competent ?Patency?: Yes ?Diameter (mm): 3.2 ?Depth (mm): 5.9 Great Saphenous Vein, Below Knee ?Reflux?: Competent ?Patency?: Yes Short Saphenous, Below Knee ?Reflux?: Competent ?Patency?: Yes Interpretation: Right: No evidence of deep or superficial venous valvular in competence. No evidence of deep (fem-pop) or superficial vein thrombus. Comparison: No previous study in our vascular lab database f or comparison. Signed by HEATH GALLO on 2011-09-23 08:13:15 AM VB Text End of Report VASCUBASE Report Specimen (Source) Anatomical Collection Method Collection Time Re ceived Time Location / / Volume Laterality 09/16/2011 3:06 PM EST Heath Gallo MD VASCULAR ORDERABLES Performing Organization Address City/State/ZIP Code Phon e Number [facility] documented in this encounter Visit Diagnoses Diagnosis Leg edema - Primary Edema documented in this encounter Care Teams Project Management Analyst Relationship Specialty Start Date End Date Caty Lake MD PCP - General 09/03/10 03/11/21 [address] [place] [address] documented as of this encounter
--- OUTSIDE RECORDS SUMMARY | 2022-09-03 12:11 | XMS_ITS | Encounter Summary ---
:1955 Author Organization [facility] Address [address] [place] [address] Care Team Providers Name Role Phone Ana Paula Wallis SAP CRM DEVELOPER Primary Care Provider Encounter Details Date Type Department Care Team Description 09/05/2020 Lab Requisition [facility] Ana Paula Wallis, SAP CRM DEVELOPER Encounter for other Pathology & [address] [facility] [place], [place] [address] [facility] [address] [place], [place] [phone] (Wo rk) [id number] [phone] Social History Tobacco Use Types Packs/Day Years Used Date Smoking Tobacco: Never Assessed Sex Assigned at Date Recorded Not on file documented as of this encounter Plan of Treatment Not on filedocumented as of this encounter Procedures Procedure Name Priority Date/Time Associated Comments Diagnosis PAP TEST Today 09/04/2020 7:40 Encounter for other Resul ts for this EST general examination procedur e are in the results section. HUMAN PAPILLOMAVIRUS Today 09/04/2020 7:40 Encounter for oth er Results for this (HPV) DETECTION-HIGH EST general examination procedure are in RISK TYPES the results section. documented in this encounter Results HUMAN PAPILLOMAVIRUS (HPV) DETECTION-HIGH RISK TYPES (09/04/2020 7:40 EST) [facility] Method Time Signature Human Negative Negative 09/12/2020 [facility] Papillomavirus 14:21 EST CENTER (HPV) LABORATORY Detection-High SERVICES Types Comment: No E6 or E7 mRNA is detected fr om HPV types 16,18,31,33,35,39,45,51,52,56,58,59,66, and 68 by envelope folder mediated amplification. Specimen Anatomical Collection Method Collection Time Receive d Time (Source) Location / / Volume Laterality Pap Test (Cervix 09/04/2020 7:40 09/11/20 20 and/or EST 10:52 EST Endocervix) Ana Paula Wallis NP MICROBIOLOGY - GENERAL ORDER TONIA Performing Organization Address City/State/ZIP Code Phon e Number [facility] [address] [place] [address] SERVICES PAP TEST (09/04/2020 7:40 EST) Component Value Ref Test Analysis Performed At [facility] gist Range Method Time Signature Specimens A. Cervix and/or 09/12/2020 [facility]ICAL Endocervix , 14:21 [facility] ThinPrep Imaging LABORATORY System with SERVICES Manual Evaluation Specimen Satisfactory for Evaluation - transformation zone comp onent present 09/12/2020 [facility] Adequacy Scant squamous epithelial co mponent, contamination present, possibly lubricant 14:21 [facility] LABORATORY SERVICES General Negative for 09/12/2020 [facility] Categorization intraepithelial 14:21 [facility] lesion or LABORATORY malignancy SERVICES Educational An additional 09/12/2020 [facility] Comments slide was 14:21 [facility] prepared and LABORATORY evaluated. SERVICES Attestation . 09/12/2020 [facility] Elect ronically 14:21 [facility] signed by JERRY Vila CT (ASCP) SERVICES on 09/12/20 20 at 1421 Clinical History See below 09/12/2020 [facility] 14:21 [facility] LABORATORY SERVICES HPV The result for the Human Pap illomavirus (HPV) Detection-High Risk Types is Negative. No E6 or E7 mRNA is detected from HPV types 16,18,31,33,35,39,45,51,52,56,58,59,66, and 68 by envelope folder mediated 09/12/2020 [facility] MEDICAL amplification.Testing was pe rformed on specimen [id number] and was resulted on 09/12/2020 1405 EST by MARY ANN, LAB INSTRUMENT RESULTS IN 14:21 [facility] LABORATORY SERVICES Performing Lab [facility] 09/12/2020 [facility] MEDIC AL LAB 14:21 [facility] LABORATORY SERVICES Scanned Images 09/12/2020 [facility] MEDICAL 14:21 [facility] LABORATORY SERVICES Specimen Anatomical Collection Method Collection Time Receive d Time (Source) Location / / Volume Laterality Pap Test (Cervix 09/04/2020 7:40 09/05/20 20 and/or EST 14:44 EST Endocervix) Ana Paula Wallis NP PATHOLOGY ORDERABLES Performing Organization Address City/State/ZIP Code Phon e Number [facility] [address] [place] [address] SERVICES documented in this encounter Visit Diagnoses Diagnosis Encounter for other general examination documented in this encounter Care Teams Long Wall Shear Operator Relationship Specialty Start Date End Date Ana Paula Wallis, ANDREW PCP - General 04/23/[address] [place] [phone] documented as of this encounter
--- OUTSIDE RECORDS SUMMARY | 2022-09-03 12:11 | XMS_ITS | Encounter Summary ---
:1955 Author Organization [facility] Address [address] [place] [address] Care Team Providers Name Role Phone Ana Paula Wallis BRAILLE TRANSLATOR Primary Care Provider Encounter Details Date Type Department Care Team Description 05/08/2021 Lab Requisition [facility] Zayas for other Pathology & MD Torres general examination Laboratory Medicine [id number] [place] [address] [id number] Social History Tobacco Use Types Packs/Day Years Used Date Smoking Tobacco: Never Assessed Sex Assigned at Date Recorded Not on file documented as of this encounter Plan of Treatment Not on filedocumented as of this encounter Procedures Procedure Name Priority Date/Time Associated Diagnosis Comme nts SURGICAL PATHOLOGY Today 05/08/2021 7:40 EDT Encounter for o ther Results for this general examination procedur e are in the results section. documented in this encounter Results SURGICAL PATHOLOGY (05/08/2021 7:40 EDT) Component Value Ref Test Analysis Performed At [facility] Range Method Time Signature Note to The following 05/10/2021 [facility] Patient pathology results 10:14 EDT CENTER have been LABORATORY interpreted by SERVICES your pathologist and may be available to you before your health provider has had the opportunity to review them. Please allow time for your provider to receive these results and explore management options, if applicable. Final A. COLON, ASCENDING POLYP, BIOPSY: 05/10 [facility] Diagnosis - Tubular adenoma. 10:14 [facility] LABORAT[facility] SERVICES Attestation There was 05/10/2021 [facility] Elect ronically significant 10:14 EDT CENTER signed b y resident/fellow LABORATORY Corinna Dewey, involvement in SERVICES on 05/10/2021 the diagnostic at 10 14 evaluation of this case. By the signature below, the attending physician certifies that they have personally conducted a gross and/or microscopic examination of the described specimens and rendered or confirmed the above diagnosis. Clinical Screening/diarrhe 05/10/2021 [facility] History a 10:14 ED CENTER LABORATORY SERVICES Gross A. 05/10/2021 [facility] Description Received in formalin bianka d with proper patient identification (initials L, J) and ascending colon polyp are 3 light wilson tissues ranging in size from 0.2 x 0.1 x 0.1 cm up to 0.3 x 0.2 x 0.1 cm. Submitted intact in A1. 10:14 T CENTER LABORATORY YADIRA CARNES(ASCP) 05/08/2021 19:45 SERVICES Resident/Js Mittal, 05/10/2021 [facility] w: DO Verito 10:14 [facility]OR[facility] SERVICES Performing Lab [facility] 05/10/2021 [facility] AL LAB 10:14 [facility] SERVICES Scanned Images 05/10/2021 [facility] 10:14 [facility] SERVICES Specimen Anatomical Collection Method Collection Time Receive d Time (Source) Location / / Volume Laterality Tissue (Colon, 05/08/2021 7:40 05/08/2021 Polyp) EDT 15:47 EDT Torres Zayas MD PATHOLOGY ORDERABLES Performing Organization Address City/State/ZIP Code Phon e Number [facility] [address] [place] [address] SERVICES documented in this encounter Visit Diagnoses Diagnosis Encounter for other general examination documented in this encounter Care Teams Binding Stitcher Relationship Specialty Start Date End Date Ana Paula Wallis, ANDREW PCP - General 04/23/20 [address] [place] [address] documented as of this encounter
--- OUTSIDE RECORDS SUMMARY | 2022-09-03 12:11 | XMS_ITS | Clinical Summary ---
:1955 Author Organization [facility] Address [address] [place] [address] Care Team Providers Name Role Phone Ana Paula Wallis THREAT ANALYST Primary Care Provider Social History Tobacco Use Types Packs/Day Years Used Date Smoking Tobacco: Never Assessed Sex Assigned at Date Recorded Not on file Plan of Treatment Health Maintenance Due Date Last Done Comments Hepatitis C Screen 1955 COVID-19 Vaccine (#1) 05/05/1956 Fall Risk Screening 2020 Insurance Payer Benefit Plan / Subscriber ID Effective Dates Phone Addre ss Type Group MEDICARE MEDICARE A/B [id number] 2020-Present [id number] [place] [address] MagdyBarbara santiago Personal/Family Self [address] (Home) [facility] [phone] Rene BENNETT T (Work) [phone] Barbara Richards Personal/Family Self [address] (Home) [facility] [phone] Rene BENNETT T (Work) [phone] MagdyBarbara santiago Personal/Family Self [address] (Home) [facility] [phone] Rene BENNETT (Work) [phone] Barbara Richards Personal/Family Self [address] (Home) [facility] [phone] Rene BENNETT (Work) [phone] Care Teams Acetylene Cutter Relationship Specialty Start Date End Date Ana Paula Wallis, THREAT ANALYST PCP - General 04/23/[address] [place] [phone]
--- OUTSIDE RECORDS SUMMARY | 2022-09-03 12:11 | XMS_ITS | Encounter Summary ---
:1955 Author Organization [facility] Address [address] [place] [address] Care Team Providers Name Role Phone Unavailable Primary Care Provider Unavailable Encounter Details Date Type Department Care Team Description 09/14/[address] [facility] - Mandy Taylor, MD ALLERGY IMMUNOLOGY conversion [address] [place] [address] Social History Tobacco Use Types Packs/Day Years Used Date Smoking Tobacco: Never Assessed Sex Assigned at Date Recorded Not on file documented as of this encounter Plan of Treatment Not on filedocumented as of this encounter Procedures Procedure Name Priority Date/Time Associated Diagnosis Comme nts CYTOPATHOLOGY Routine 09/14/2002 0:00 EST Result s for this procedure are i n the results section . documented in this encounter Results CYTOPATHOLOGY (09/14/2002 0:00 EST) Component Value Ref Test Analysis Performed At [facility] Method [facility] Pathology CYTOPATHOLOGY REPORT J[facility]ON Report: [facility] Reports generated via electronic interface contain original data; however they are lacking the format of the original report. Caution should be taken when reading/interpreting unformatte d reports. Name: ? BARBARA RICHARDS ? Accession #: ? [id number] : ? 1955 (Age: 46) ??F ?Collect Date: ? 09/14/2002 Location: ? [facility] ? Receive Date: ? 09/15/2002 Provider: ?MANDY MARMOLEJO NP Copy to: ? Specimen/Source: ?ThinPrep Pap Test, Cervix/Endoce rvix Last Menstrual Period: ? 08/21/02 ? SPECIMEN ADEQUACY ? Satisfactory for Evaluation - transformation zone component present GENERAL CATEGORIZATION ? Negative for Intraepithelial Lesion or Malignancy ? Document reviewed and electronically signed by: ? Allie Cisneros, CT(ASCP) ? Report Date: ??09/15/2002 14:45 End of Report Specimen (Source) Anatomical Location Collection Method / Collectio n Time Received Time / Laterality Volume 09/14/2002 09/15/2002 Mandy Marmolejo NP PATHOLOGY ORDERABLES Performing Organization Address City/State/ZIP Code Phon e Number [facility] [address] [place] [address] SERVICES [facility] [address] [place] [address] documented in this encounter Visit Diagnoses Not on filedocumented in this encounter
--- OUTSIDE RECORDS SUMMARY | 2022-09-03 12:11 | XMS_ITS | Encounter Summary ---
:1955 Author Organization [facility] Address [address] [place] [address] Care Team Providers Name Role Phone Unavailable Primary Care Provider Unavailable Encounter Details Date Type Department Care Team Description 03/24/2007 Results Only [facility] - Mandy Taylor, TEAM OTR TRUCK DRIVER conversion [address] [place] [address] Social History Tobacco Use Types Packs/Day Years Used Date Smoking Tobacco: Never Assessed Sex Assigned at Date Recorded Not on file documented as of this encounter Plan of Treatment Not on filedocumented as of this encounter Procedures Procedure Name Priority Date/Time Associated Diagnosis Comme nts CYTOPATHOLOGY Routine 03/24/2007 0:00 EDT Result s for this procedure are i n the results section . documented in this encounter Results CYTOPATHOLOGY (03/24/2007 0:00 EDT) Component Value Ref Test Analysis Performed At [facility] Method Time [facility] Pathology CYTOPATHOLOGY REPORT JAYLON Report: [facility] Reports generated via electronic interface contain original data; however they are lacking the format of the original report. Caution should be taken when reading/interpreting unformatte d reports. Name: ? BARBARA RICHARDS ? Accession #: ? [id number] : ? 1955 (Age: 51) ??F ?Collect Date: ? 03/24/2007 Location: ? [facility] ? Receive Date: ? 03/25/2007 Provider: ?MANDY MARMOLEJO NP Copy to: ? Specimen/Source: ? ThinPrep Pap Test, Cervix/Endocervix, processed on [email or web address] ThinPrep Imaging System, with manual evaluation Last Menstrual Period: ? 11/18/ Other: ? HPVA - HPV testing requested if ASC-US on the current ThinPr ep Pap test. ? SPECIMEN ADEQUACY ? Satisfactory for Evaluation - transformation zone component present GENERAL CATEGORIZATION ? Negative for Intraepithelial Lesion or Malignancy ? Document reviewed and electronically signed by: ? ANTONI TAYLOR MD ? Report Date: ??04/02/2007 14:01 End of Report Specimen (Source) Anatomical Location Collection Method / Collectio n Time Received Time / Laterality Volume 03/24/2007 03/25/2007 Mandy Marmolejo NP PATHOLOGY ORDERABLES Performing Organization Address City/State/ZIP Code Phon e Number [facility] [address] [place] [address] SERVICES [facility] [address] [place] [address] documented in this encounter Visit Diagnoses Not on filedocumented in this encounter
--- OUTSIDE RECORDS SUMMARY | 2022-09-03 12:11 | XMS_ITS | Encounter Summary ---
:1955 Author Organization [facility] Address [address] [place] [address] Care Team Providers Name Role Phone Unavailable Primary Care Provider Unavailable Encounter Details Date Type Department Care Team Description 09/13/[address] [facility] - Mandy Taylor, MEAL COOKER conversion [address] [place] [address] Social History Tobacco Use Types Packs/Day Years Used Date Smoking Tobacco: Never Assessed Sex Assigned at Date Recorded Not on file documented as of this encounter Plan of Treatment Not on filedocumented as of this encounter Procedures Procedure Name Priority Date/Time Associated Diagnosis Comme nts CYTOPATHOLOGY Routine 09/13/2001 0:00 EST Result s for this procedure are i n the results section . documented in this encounter Results CYTOPATHOLOGY (09/13/2001 0:00 EST) Component Value Ref Test Analysis Performed At [facility] Method Time [facility] Pathology CYTOPATHOLOGY REPORT JAYLON Report: [facility] Reports generated via electronic interface contain original data; however they are lacking the format of the original report. Caution should be taken when reading/interpreting unformatte d reports. Name: ? BARBARA RICHARDS ? Accession #: ? [id number] : ? 1955 (Age: 45) ??F ?Collect Date: ? 09/13/2001 Location: ? [facility] ? Receive Date: ? 09/14/2001 Provider: ?MANDY MARMOLEJO NP Copy to: ? Specimen/Source: ?ThinPrep Pap Test, Cervix/Endoce rvix Last Menstrual Period: ? 08/20/01 ? SPECIMEN ADEQUACY ? Satisfactory for evaluation. GENERAL CATEGORIZATION ? Within Normal Limits ? Document reviewed and electronically signed by: ? Nayeli Gamez, ??SCT(ASCP) ? Report Date: ??09/16/2001 10:35 End of Report Specimen (Source) Anatomical Location Collection Method / Collectio n Time Received Time / Laterality Volume 09/13/2001 09/14/2001 Mandy Marmolejo NP PATHOLOGY ORDERABLES Performing Organization Address City/State/ZIP Code Phon e Number [facility] [address] [place] [address] SERVICES [facility] [address] [place] [address] documented in this encounter Visit Diagnoses Not on filedocumented in this encounter
--- OUTSIDE RECORDS SUMMARY | 2022-09-03 12:11 | XMS_ITS | Encounter Summary ---
:1955 Author Organization [facility] [place] [address] Care Team Providers Name Role Phone Caty Lake MD Primary Care Provider Encounter Details Date Type Department Care Team Description 06/26/2011 Hospital Encounter [facility] [place] [facility] Caty Akins MD [address] [place] [address] [place] [address] Social History Tobacco Use Types Packs/Day Years Used Date Smoking Tobacco: Never Assessed Sex Assigned at Date Recorded Not on file documented as of this encounter Medications at Time of Discharge Medication Sig Dispensed Refills Start Date End Date levothyroxine (LEVOXYL) 112 112MCG = 1 0 11/15/19 10 08/08/2011 mcg tablet Tablet(s), PO, Once daily lovastatin (MEVACOR) 20 mg 20mg, PO, QPM 0 200908/08/2011 tablet documented as of this encounter Plan of Treatment Not on filedocumented as of this encounter Procedures Procedure Name Priority Date/Time Associated Comments Diagnosis US EXTREMITY Routine 06/26/2011 2:26 PM Results f or this UNILATERAL EDT procedure are i n the results section. documented in this encounter Results US EXTREMITY UNILATERAL (06/26/2011 2:26 PM EDT) Anatomical Region Laterality Modality Arm, Shoulder, Elbow, Forearm, Wrist, Hand, Hip, Thigh, Knee , Ultrasound Leg, Ankle, Foot Specimen (Source) Anatomical Collection Method Collection Time Re ceived Time Location / / Volume Laterality 06/26/2011 2:26 PM EDT Narrative 06/26/2011 4:32 PM EDT ?Ultrasound Extremity R eport ? (Signed Final 06/26/2011 04 :31 pm) Patient Info ID: ? [id number] ? : ??[birth year] (55 yrs) Name: ? BARBARA RICHARDS ?Visit Date: 06/26/2011 02:05 pm Procedures UEXT1- Extremity Scan Limited ( Non - M SK) - ?[id number] Indications Intermittent swelling of right lower le g R/O pathology such as growth that is ob structing her lymph or vascular flow -------- Findings -------- Title: ? Ultrasound Extremity Re port Findings: ?No evidence of mass or f luid collection. Impression Ultrasound - Unilateral Extremity Scan - Summary Targeted ultrasound to the right lower leg and popliteal fossa was performed. No mass seen. No f indings to explain the patient's intermittent leg swelling. Though formal doppler evaluation of the deep venous system was not performed, the popliteal artery and vein are patent. I ??viewed the images and agree with evert rivers above interpretation. Thank you for allowing us to participat e in the care of BARBARA RICHARDS. Please do not hesitate to call if you have any questions. ? La Castillo-Elaine abdi MD Electronically Signed Final Report ?? 04:31 pm Film and interpretation reviewed by the attending Procedure Note La Price MD - 06/12 Ultrasound Extremity Report (Signed Final 06/26/2011 04:31 pm) Patient Info ID: [id number] : [birth year] (55 yrs ) Name: BARBARA RICHARDS Visit Date: 2010 02:05 pm Procedures UEXT1- Extremity Scan Limited ( [facility]) - [id number] Indications Intermittent swelling of right lower le g R/O pathology such as growth that is ob structing her lymph or vascular flow -------- Findings -------- Title: Ultrasound Extremity Report Findings: No evidence of mass or fluid collection. Impression Ultrasound - Unilateral Extremity Scan - Summary Targeted ultrasound to the right lower leg and popliteal fossa was performed. No mass seen. No f indings to explain the patient's intermittent leg swelling. Though formal doppler evaluation of the deep venous system was not performed, the popliteal artery and vein are patent. I viewed the images and agree with the above interpretation. Thank you for allowing us to participat e in the care of BARBARA RICHARDS. Please do not hesitate to call if you have any questions. La Robison MD Electronically Signed Final Report 06/26 04:31 pm Film and interpretation reviewed by the attending Caty Lake MD IMG US GEN ORDERABLES documented in this encounter Visit Diagnoses Not on filedocumented in this encounter Care Teams Lens Dotter Relationship Specialty Start Date End Date Caty Lake MD PCP - General 09/03/10 03/11/21 [address] [place] [address] documented as of this encounter
--- OUTSIDE RECORDS SUMMARY | 2022-09-03 12:11 | XMS_ITS | Encounter Summary ---
:1955 Author Organization [facility] Address [address] [place] [address] Care Team Providers Name Role Phone Unavailable Primary Care Provider Unavailable Encounter Details Date Type Department Care Team Description 12/25/2005 Results Only [facility] - Aleah Keenan od, Marta Monson, CARPENTER HELPER conversion [address] [place] [phone] (Wo rk) Social History Tobacco Use Types Packs/Day Years Used Date Smoking Tobacco: Never Assessed Sex Assigned at Date Recorded Not on file documented as of this encounter Plan of Treatment Not on filedocumented as of this encounter Procedures Procedure Name Priority Date/Time Associated Diagnosis Comme nts CYTOPATHOLOGY Routine 12/25/2005 0:00 EST Results for this procedure are i n the results section . documented in this encounter Results CYTOPATHOLOGY (12/25/2005 0:00 EST) Component Value Ref Test Analysis Performed At [facility] Method Time [facility] Pathology CYTOPATHOLOGY REPORT JAYLON Report: [facility] Reports generated via electronic interface contain original data; however they are lacking the format of the original report. Caution should be taken when reading/interpreting unformatte d reports. Name: ? CARMEN RICHARDS ? Accession #: ? [id number] : ? 1955 (Age: 50) ??F ?Collect Date: ? 12/25/2005 Location: ? [facility] ? Receive Date: ? 12/29/2005 Provider: ?MARTA AMAYA CARPENTER HELPER Copy to: ? Specimen/Source: ? ThinPrep Pap Test, Cervix/Endocervix, processed on [employer] ThinPrep Imaging System, with manual evaluation Last Menstrual Period: ? 12/12/05 Other: ? HPVA - HPV testing requested if ASC-US on the current ThinPr ep Pap test. ? SPECIMEN ADEQUACY ? Satisfactory for Evaluation - transformation zone component present GENERAL CATEGORIZATION ? Negative for Intraepithelial Lesion or Malignancy ? Document reviewed and electronically signed by: ? LOKESH Styles(ASCP) ? Report Date: ??12/31/2005 09:06 End of Report Specimen (Source) Anatomical Location Collection Method / Collectio n Time Received Time / Laterality Volume 12/25/2005 12/29/2005 Marta Amaya CARPENTER HELPER PATHOLOGY ORDERABLES Performing Organization Address City/State/ZIP Code Phon e Number [facility] [address] [place] [address] SERVICES [facility] [address] [place] [address] documented in this encounter Visit Diagnoses Not on filedocumented in this encounter
--- OUTSIDE RECORDS SUMMARY | 2022-09-03 12:11 | XMS_ITS | Encounter Summary ---
:1955 Author Organization [facility] Address [address] [place] [address] Care Team Providers Name Role Phone Ana Paula Wallis Sb FIRE TECHNOLOGY INSTRUCTOR Primary Care Provider Encounter Details Date Type Department Care Team Description 03/06/2021 Lab Requisition [facility] Outr Resulting Lab, Pathology & Laboratory Provider [facility] [address] [place] [address] [id number] Social History Tobacco Use Types Packs/Day Years Used Date Smoking Tobacco: Never Assessed Sex Assigned at Date Recorded Not on file documented as of this encounter Plan of Treatment Not on filedocumented as of this encounter Procedures Procedure Name Priority Date/Time Associated Diagnosis Comme nts FECAL BACTERIAL Routine 03/06/2021 10:50 Results for this PATHOGENS BY PCR EDT procedure a re in the results section. documented in this encounter Results FECAL BACTERIAL PATHOGENS BY PCR (03/06/2021 10:50 EDT) [facility] Method Time Signature Salmonella PCR Negative Negative 03/06/2021 [facility] 23:07 EDT [facility] SERVICES Shigella/Enteroin Negative Negative 03/06/2021 [facility] vasive E. coli 23:07 [facility] Negative Negative 03/06/2021 [facility] CAMPYLOBACTER PCR 23:07 [facility] Shiga Toxin PCR Negative Negative 03/06/2021 [facility] 23:07 T CENTER LABORATORY SERVICES Specimen Anatomical Collection Method Collection Time Receive d Time (Source) Location / / Volume Laterality Feces SPECIMEN FROM Stool Collect / 03/06/2021 10:50 021 [facility] / Unknown Unknown EDT 17:33 EDT Provider Outr Resulting Lab MICROBIOLOGY - GENERAL ORD ERABLES Performing Organization Address City/State/ZIP Code Phon e Number [facility] [address] [place] [address] SERVICES documented in this encounter Visit Diagnoses Not on filedocumented in this encounter Care Teams Phosphoric Acid Operator Relationship Specialty Start Date End Date Ana Paula Wallis, FIRE TECHNOLOGY INSTRUCTOR PCP - General 04/23/20 [address] [place] [phone] documented as of this encounter
--- OUTSIDE RECORDS SUMMARY | 2022-09-03 12:11 | XMS_ITS | Encounter Summary ---
:1955 [place] [address] Care Team Providers Name Role Phone Caty Lake MD Primary Care Provider Reason for Visit Reason Comments Skin Check Encounter Details Date Type Department Care Team Description 03/10/2014 Follow-Up Dermatology at Jasvir Alvarado MD Seborrheic keratosis, inflamed (Primary Dx); [facility] Solar lentigo [address] [place] [address] [facility] [phone] RD-DERMATOLOGY [place], [place] [address] (Wo rk) Social History Tobacco Use Types Packs/Day Years Used Date Smoking Tobacco: Former Comments: minimal for one year Sex Assigned at Date Recorded Not on file documented as of this encounter Progress Notes Velma Mayfield, AUTO TECH - 03/10/2014 9:01 AM EDT DERMATOLOGY ESTABLISHED PATIENT CLINIC NOTE Date of service: 03/10/2014 Barbara Richards : 1955 Provider: Luna Nieto MD PROBLEM: Skin check SKIN HISTORY: SK's Telangiectasias HPI Barbara Richards is a 58 y.o. year old female. Patient is here today for a full skin cancer screening.Patient has not been seen by me since 2010. Patient has a spot on her right back that she wants looked at, states it is new and sometimes itches. Patient also has a bump on her scalp that she states has been there for a while and sometimes is scaly. Patient has no other concerns. ADR: No Known Allergies ROS General: feeling well Skin: denies other skin complaints EXAM General: NAD, pleasant, cooperative Skin: A total body skin exam except for the genitalia was performed. This includes examination of the skin of the face, ears, neck, chest, axillae, left and right upper and lower extremities, hands, feet, abdomen, back, and buttocks. The genitalia, perineum, and perianal areas were not examined. Significant skin findings: A. Right back: inflamed 0.4-1 brown-black papules/plaques with waxy, stuck-on appearance B. Diffusely tanned, flat patch of skin color change (macule) ?? Light brown C. Anterior scalp: scaly plaque ASSESSMENT/PLAN: A. Inflamed seborrheic keratosis Procedure Note: Procedure: Destruction of lesion(s) with cryotherapy. Number: 1 Location: as above Discussed procedure and expectations including risks (including risk of hypopigmentation) and benefits. Verbal consent obtained. Frozen with LN2, 15-30 second thaw time, TWICE. There were no complications; the patient tolerated the procedure well. Post-procedure expectations and wound care were reviewed. B. Solar lentigines: Discussed importance of sun protection, sun avoidance strategies, protective clothing, and sunscreen. I discussed warning signs for skin cancer, including the ABCE's of melanoma. C. SK vs SCCIS Procedure Note: Procedure: Destruction of lesion(s) with cryotherapy. Number: 1 Location: as above Discussed procedure and expectations including risks (including risk of hypopigmentation) and benefits. Verbal consent obtained. Frozen with LN2, 15-30 second thaw time, TWICE. There were no complications; the patient tolerated the procedure well. Post-procedure expectations and wound care were reviewed. RTC in 3 months for recheck of scalp Note initiated by: VELMA MAYFIELD LPN Routed to physician for review and changes: Luna Nieto MD Section of Dermatology [facility] documented in this encounter Plan of Treatment Not on filedocumented as of this encounter Visit Diagnoses Diagnosis Seborrheic keratosis, inflamed - Primary Inflamed seborrheic keratosis Solar lentigo Other dyschromia documented in this encounter Care Teams Account Management Assistant Relationship Specialty Start Date End Date Caty Lake MD PCP - General 09/03/10 03/11/21 [address] [place] [address] documented as of this encounter
--- OUTSIDE RECORDS SUMMARY | 2022-09-03 12:11 | XMS_ITS | Clinical Summary ---
:1955 Author Organization [facility] [place] [address] [place] [address] Care Team Providers Name Role Phone Unknown Primary Care Provider Unavailable Allergies No known active allergies Medications Medication Sig Dispensed Refills Start Date End Date Status levothyroxine Take 125 mcg by 0 Active (SYNTHROID) 125 mcg mouth daily. tablet PARoxetine (PAXIL) 10 Take 10 mg by 0 Active mg tablet mouth nightly. acyclovir (ZOVIRAX) 5 % Apply topically 0 09/09/2018 Active Ointment as needed. clobetasoL (TEMOVATE) Apply topically. 0 02/02/2020 Active 0.05 % Cream simvastatin (Zocor) 20 TAKE ONE TABLET 0 02/06/2021 Active mg Tablet BY MOUTH AT BEDTIME triamcinolone Apply topically. 0 09/04/2020 Active (ARISTOCORT) 0.5 % Cream diphenhydrAMINE Take 25 mg by 0 Active (Benadryl) 25 mg mouth every 6 Capsule hours as needed for Itching. cetirizine (ZyrTEC) 10 Take 10 mg by 0 Active mg Tablet mouth 2 times daily. Active Problems Problem Noted Date Seborrheic keratosis, inflamed 03/13/2014 Venous insufficiency 09/02/2011 Solar lentigo 08/16/2011 Skin tag 08/16/2011 Milia 08/16/2011 Hypercholesterolemia 07/29/2011 Hyperthyroidism 07/29/2011 S/P section x2 07/29/2011 Immunizations Name Administration Dates Next Due Pneumococcal Polyvalent 23 07/01/2004 Social History Tobacco Use Types Packs/Day Years Used Date Smoking Tobacco: Former Smokeless Tobacco: Never Comments: minimal for one year Sex Assigned at Date Recorded Not on file Last Filed Vital Signs Vital Sign Reading Time Taken Comments Blood Pressure 118/68 09/16/2011 3:43 PM EST Pulse 72 09/16/2011 3:43 PM EST Temperature - - Respiratory Rate - - Oxygen Saturation 96% 08/08/2011 3:50 PM EDT Inhaled Oxygen Concentration - - Weight 55.8 kg (123 lb) 09/16/2011 3:43 PM EST Height 162.6 cm (5' 4) 09/16/2011 3:43 PM EST Body Mass Index 21.11 09/16/2011 3:43 PM EST Plan of Treatment Health Maintenance Due Date Last Done Comments Covid-19 Vaccine (#1) 05/05/1956 Hepatitis C Screening 1973 Tdap adult 1974 Tetanus vaccine 1974 HPV test 1985 PAP Smear 1985 Breast Cancer Share Decision Needed 1995 Colonoscopy 2000 Pneumoccocal Vaccine: 65+ (2 - PCV) 07/01/2005 07/01/2004 Breast Cancer screening 2005 Zoster vaccine (1 of 2) 2005 Advance Directive 2010 Bone Density Scan 2020 Influenza (Flu) vaccine (1 of 1 - Influenza standard 06/12/2022 series) Insurance Payer Benefit Plan / Subscriber ID Effective Dates Phone Addre ss Type Group MEDICARE MEDICARE PART A [id number] 2021-Present [phone] [id number] [facility] [place] [address] Care Teams Retail Cosmetics Sales Beauty Advisor Relationship Specialty Start Date End Date Unknown PCP - General 07/05/22 None
--- OUTSIDE RECORDS SUMMARY | 2022-09-03 12:11 | XMS_ITS | Encounter Summary ---
:1955 Author Organization [facility] [place] [address] Care Team Providers Name Role Phone Ana Paula Wallis ROBERT Primary Care Provider Reason for Visit Reason Comments Follow-up Encounter Details Date Type Department Care Team Description 06/05/2021 Office Visit Dermatology at [facility] I diopathic urticaria Alana Hope MD [address] [place] [address] [facility], [place] [address] Social History Tobacco Use Types Packs/Day Years Used Date Smoking Tobacco: Former Smokeless Tobacco: Never Comments: minimal for one year Sex Assigned at Date Recorded Not on file documented as of this encounter Progress Notes Kareen Yepez MD - 06/05/2021 3:00 PM EDT Images from the original note were not included. DEPARTMENT OF DERMATOLOGY Medical Dermatology Clinic Note Provider: Kareen Yepez MD Patient's preferred name Barbara Preferred contact method for results []myDH [x]Letter [x]Phone: Cell Detailed phone message OK? Yes Are there any other people with whom we may discuss your care? Sons (Khalif Jones) PAST MEDICAL HISTORY If no, type N. If yes, type date, location, treatment Melanoma N Dysplastic nevi N SCC N BCC N AKs N UV Exposure & Protection N Other relevant past medical history (i.e. eczema, psoriasis, birthmarks, immunosuppression) Chronic urticaria PMH: hypothyroidism FAMILY HISTORY If yes, details Melanoma N NMSC N Other relevant family history N SOCIAL HISTORY Occupation: Retired Hobbies: Golf, knitting PRE-PROCEDURE SCREENING If no, type N. If yes, include details below Allergy to lidocaine, epinephrine, Dermabond, chlorhexidine, or adhesives: No Bleeding disorder or blood thinners: No Implanted devices (Pacemaker, defibrillator, deep brain stimulator, cochlear implant): No History of Present Illness: Barbara Richards is a 65 y.o. patient who returns to the clinic today for a 6-week follow up for urticaria. - Patient is happy to report that she has not had any hives or rashes since she started taking Zyrtec 10 mg PO BID in early April. Denies drowsiness with this medication. Last visit at [facility] Derm: 04/23/2021 Last visit with this provider: N/A Medications: Reviewed in eD-H Allergies: Reviewed in eD-H Skin Examination: Focused skin examination of the neck, trunk, and left calf was normal with the exception of the findings below Assessment/Plan #. History of Chronic Idiopathic Urticaria EXAM: Clear skin on exam. - Markedly improved on cetirizine therapy. - Can consider tapering Zyrtec 10 mg once daily; increasing again to twice daily if she experiences flares. - Encouraged patient to follow up for condition recurs. RTC: PRN []Note routed to litigation legal secretary []Recall has been placed in scheduling system []Appointment scheduled at checkout Scribe attestation: LAURA Dewey has performed the documentation for this encounter in the presence of and acting as a scribe for Kareen Yepez MD I performed the above scribed service and agree with the accuracy of the documentation in this encounter. Reviewed and signed by: Kareen Yepez MD Dermatology [facility] Patient seen and evaluated with staff weather anchor: Lennie Rodrigues MD Dermatology [facility] Lennie Rodrigues MD - 06/05/2021 3:00 PM EDT I directly supervised the Dermatology resident during this office visit. The resident presented the history and physical exam to me. I then saw and examined this patient with the resident. We reviewed the history and pertinent details and I confirmed the physical findings. I agree with the details of the history and physical exam as documented in the resident's note. LENNIE RODRIGUES MD Staff Physician documented in this encounter Plan of Treatment Not on filedocumented as of this encounter Visit Diagnoses Diagnosis Idiopathic urticaria documented in this encounter Care Teams Filler Shaker Relationship Specialty Start Date End Date Ana Paula Wallis, LINEN CHECKER PCP - General Family Medicine 03/12/21 07/04/[address] [place] [address] documented as of this encounter
--- OUTSIDE RECORDS SUMMARY | 2022-09-03 12:11 | XMS_ITS | Encounter Summary ---
:1955 Author Organization [facility] Address [address] [place] [address] Care Team Providers Name Role Phone Unavailable Primary Care Provider Unavailable Encounter Details Date Type Department Care Team Description 09/13/2008 Before [facility] Brian De Santiago MD Converted Visit Family Medicine - [address] [facility] ([place], [place] [address] [facility] [id number] [place] [address] [phone] Social History Tobacco Use Types Packs/Day Years Used Date Smoking Tobacco: Never Assessed Sex Assigned at Date Recorded Not on file documented as of this encounter Plan of Treatment Not on filedocumented as of this encounter Procedures Procedure Name Priority Date/Time Associated Diagnosis Comme [facility] SURGICAL PATHOLOGY Routine 09/13/2008 0:00 EST Re sults for this procedure are i n the results section. documented in this encounter Results SURGICAL PATHOLOGY (09/13/2008 0:00 EST) Component Value Ref Test Analysis Performed At [facility] Method Time Signature Pathology SURGICAL PATHOLOGY REPORT ? MURALI HER Report: Reports generated via electr Zula interface contain original data; ? LIANNE KEENAN however they are lacking the format of the original report. ? Caution should be taken when reading/interpreting unformatted reports. ? Name: ? LITTEL, BARBARA M ? Accession #: ? [id number] ? : ? 1955 (Age: 52) ??F ? Collec t Date: ? 09/13/2008 ? Location: ? [facility] ? R eceive Date: ? 09/13/2008 ? Provider: BRIAN TODDO MD ? Copy to: RADHA F ABHIJIT DO ? Final Pathologic Diagnosis: ? Colon, descending, po lyp, biopsies: ? - Colonic mucosa with promin ent lymphoid aggregate. ??See comment. ? Comment: ? Deeper sections of th is biopsy have been examined. ??No definitive polyp is identified. ??(Dr. Renae)/m pl ? Document reviewed and electr onically signed by: ? Tea Renae, MD ? Report ??Date: 09/15/2008 17 :04 ? By the signature above, the attending physician certifies that he/she has ? personally conducted a gross and/or microscopic examination of the described ? specimens and rendered or co nfirmed the above diagnosis. ? Specimen(s) Received: ? Polyp descending colo n ? Clinical History: ? Family history colon polyps ? Gross Description: ? Received in Hollande' s fixative labelled Littel and #1 polyps descending colon are two biopsies teresa uring 0.1 x 0.1 x 0.1 cm and 0.3 x 0.2 x 0.2 cm. ? The specimens are submitted intact in one cassette. ??(JAIRO Tessitore)/ljk ? End of Report ? Specimen (Source) Anatomical Collection Method Collection Time Re ceived Time Location / / Volume Laterality 09/13/2008 09/13/2008 8:57 EST Brian De Santiago MD PATHOLOGY ORDERABLES Performing Organization Address City/State/[facility] Code Phon e Number [facility] [address] [place] [address] SERVICES [facility] [address] [place] [address] documented in this encounter Visit Diagnoses Not on filedocumented in this encounter
--- OUTSIDE RECORDS SUMMARY | 2022-09-03 12:11 | XMS_ITS | Encounter Summary ---
:1955 Author Organization [facility] [place] [address] Care Team Providers Name Role Phone Caty Lake MD Primary Care Provider Reason for Visit Reason Comments Skin Lesion Encounter Details Date Type Department Care Team Description 08/08/2011 Follow-Up Dermatology Luna Nieto MD [facility] (Primary Dx); [facility] n tag; Drive DR Roberson lentigo [address] [phone] [address]-DERMATOLOGY [place] [address] (Wo rk) Social History Tobacco Use Types Packs/Day Years Used Date Smoking Tobacco: Former Comments: minimal for one year Sex Assigned at Date Recorded Not on file documented as of this encounter Progress Notes Luna Nieto MD - 08/08/2011 11:34 AM EDT DERMATOLOGY ESTABLISHED PATIENT CLINIC NOTE Date of service: 08/08/2011 Barbara Richards : 1955 Provider: Luna Nieto MD PROBLEM: Waist up exam SKIN HISTORY: Sk's, telangectasia HPI Ms. Richards is a 55 y.o. year old female here today because of concerning lesions on her face, in addition she has some skin tags under her breast. ADR: Review of patient's allergies indicates no known allergies. MEDS: Current outpatient prescriptions ordered prior to encounter Medication Sig Dispense Refill ??? levothyroxine (LEVOXYL) 112 mcg tablet 112MCG = 1 Tablet(s), PO, Once daily ??? lovastatin (MEVACOR) 20 mg tablet 20mg, PO, QPM ROS General: feeling well Skin: denies other skin complaints EXAM General: NAD, pleasant, cooperative Skin: An exam of the skin from the neck up was performed. This includes examination of the skin of the face, ears, scalp, and neck. Focused exam of the abdomen Significant skin findings: A. 0.1cm firm, round, white subcutaneous papule located on R lower lid B. 0.2-0.4cm, sessile, flesh-colored papules C. 0.3-0.6cm light-brown evenly pigmented, well-demarcated macule ASSESSMENT/PLAN: A. Milia, Incision and Drainage: Milia, prepped with alcohol, incised with #11 scalpel, and compressed with comedo extractor with pressure until cyst contents were removed. Bleeding minimal. Dressed with adhesive bandage. B. Skin tags, x 3 Procedure(s): Destruction of lesion(s) with cryotherapy. Number: 3 Location: as above Discussed procedure and expectations including risks (including risk of hypopigmentation) and benefits. Verbal consent obtained. Frozen with LN2, 15-30 second thaw time, TWICE. There were no complications; the patient tolerated the procedure well. Post-procedure expectations and wound care were reviewed. C. Lentigines, Sun avoidance, protective clothing and the use of SPF 30 sunscreen is advised. Observe closely for skin changes and call if such occurs. D. RTC PRN Note initiated by: Loly Munoz LPN Routed to physician for review and changes: Luna Nieto MD Section of Dermatology [facility] documented in this encounter Plan of Treatment Not on filedocumented as of this encounter Visit Diagnoses Diagnosis Milia - Primary Sebaceous cyst Skin tag Unspecified hypertrophic and atrophic co ndition of skin Solar lentigo Other dyschromia documented in this encounter Care Teams Singeing Torch Operator Relationship Specialty Start Date End Date Caty Lake MD PCP - General 09/03/10 03/11/21 [address] [place] [address] documented as of this encounter
--- OUTSIDE RECORDS SUMMARY | 2022-09-03 12:11 | XMS_ITS | Encounter Summary ---
:1955 Author Organization [facility] Address [address] [place] [address] Care Team Providers Name Role Phone Unavailable Primary Care Provider Unavailable Encounter Details Date Type Department Care Team Description 12/17/1999 Results Only [facility] - Mandy Taylor, COAL UNLOADER conversion [address] [place] [address] Social History Tobacco Use Types Packs/Day Years Used Date Smoking Tobacco: Never Assessed Sex Assigned at Date Recorded Not on file documented as of this encounter Plan of Treatment Not on filedocumented as of this encounter Procedures Procedure Name Priority Date/Time Associated Diagnosis Comme [facility] CYTOPATHOLOGY Routine 12/17/1999 9:21 EST Result s for this procedure are i n the results section . documented in this encounter Results CYTOPATHOLOGY (12/17/1999 9:21 EST) Component Value Ref Test Analysis Performed At [facility] Pathology CYTOPATHOLOGY REPORT JAYLON Report: [facility] Reports generated via electronic interface contain original data; however they are lacking the format of the original report. Caution should be taken when reading/interpreting unformatte d reports. Name: ? BARBARA RICHARDS ? Accession #: ? [id number] : ? 1955 (Age: 44) ??F ?Collect Date: ? 12/17/1999 Location: ?Receive Date: ? 0 12/17/1999 Provider: ?MANDY MARMOLEJO NP Copy to: ?MANDY Adele CHARLEY MORALES ? Specimen/Source: ?Packaging Clerk ThinPrep Last Menstrual Period: ? GYNECOLOGIC ??CYTOPATHOLOGY ??RE [place] Name: LITTEL,BARBARA ? FAH C : 1955 ?? 44Y F ?Client ID: [id number] SS#: ? Clinician: LUDY MARMOLEJO NP ?? Location: [facility] ??Copy to: ?? Specimen: ?Packaging Clerk ThinPrep ? Source: Cervix/Endocervix ?Collected: 12/16/99 ? Received: 12/17/1999 ?LMP: 12/04/99 ? Hormone Therapy: No ? : No ? Radiation Therapy: No ?? Post : No ?Chemotherapy: No ?IUD: No ? Prev Abnormal Pap: No ?? Clinical Hx: ?(Blank ca indicate information not provided on req uisition) SPECIMEN ADEQUACY: ? Satisfactory For Evaluation ?? GENERAL CATEGORIZATION: ? WITHIN NORMAL LIMITS ? Reviewed And Electronically Signed By: ? Kervin Qureshi, CT(A SCP) ? Report Date: ?? 0 12/17/1999 [employer] Archived Tests - Final Diagnosis Text Field: Clinical History : ? Document reviewed and electronically signed by: ? Conversion ? Report Date: ??12/17/1999 00:00 End of Report Specimen Anatomical Collection Method Collection Time Receive d Time (Source) Location / / Volume Laterality 12/17/1999 9:21 12/17/1999 9 :22 EST EST Mandy Marmolejo COAL UNLOADER PATHOLOGY ORDERABLES Performing Organization Address City/State/ZIP Code Phon e Number [facility] [address] [place] [address] SERVICES [facility] [address] [place] [address] documented in this encounter Visit Diagnoses Not on filedocumented in this encounter
--- OUTSIDE RECORDS SUMMARY | 2022-09-03 12:11 | XMS_ITS | Encounter Summary ---
:1955 Author Organization [facility] [place] [address] Care Team Providers Name Role Phone GregorioAna Paula sy Sb JONES Primary Care Provider Reason for Visit Reason Comments Procedure Cosmetic Encounter Details Date Type Department Care Team Description 06/05/2021 Office Visit Dermatology at [facility] Kareen Yepez eborrheic keratosis Alana Hope MD [address] [place] [address] [facility] [place], [place] [address] Social History Tobacco Use Types Packs/Day Years Used Date Smoking Tobacco: Former Smokeless Tobacco: Never Comments: minimal for one year Sex Assigned at Date Recorded Not on file documented as of this encounter Patient Instructions Patient InstructionsFlorina Meadows, [facility] - 06/05/2021 3:20 PM EDT Seborrheic Keratoses Diagnosis: You have been diagnosed today with seborrheic keratoses. These are very common, benign (non-cancerous) growths that can occur almost anywhere on the skin. Seborrheic keratoses are usually brown but canrange in color from light wilson to black and can measure anywhere from a fraction of an inch to largerthan a half- dollar. They often can be mistaken for a wart or mole. One distinguishing feature of a seborrheic keratosis is its waxy, eguub-ms-uvp-skin appearance. They have been referred to as barnacles of life, because they resemble barnacles stuck to a ship. Treatment: You were treated today with liquid nitrogen. This is the most common treatment for an irritated seborrheic keratosis. Liquid nitrogen is extremely cold and freezes the surface of the skin, causing the lesion to flake off. This treatment can be uncomfortable but discomfort should subside after a coupleof hours. The area treated will look red and irritated, and it may blister up or turn dark, then fall off; this is normal. Wound care: You do not need any special treatment for the area, but you may find cold compresses and/or a light application of Vaseline soothing. For best results, do not rub or pick at the healing lesion. Expected healing time is 3-4 weeks. Prevention: Although it is unclear what causes seborrheic keratoses to develop, it is certain that they are not contagious. Seborrheic keratoses do have the tendency to run in families. Contact information: On weekdays (8 am to 5 pm), please call the clinic at [phone]. After 5 pm, and on weekends and holidays, please call the hospital at [phone] and ask for the Upstream Biomanufacturing Technician Clinical Documentation Manager. documented in this encounter Progress Notes Kareen Yepez MD - 06/05/2021 3:20 PM EDT Images from the original note were not included. COSMETIC DERMATOLOGY CLINIC NOTE Date of service: 06/05/2021 Barbara Richards : 1955 Provider: Kareen Yepez MD. HPI Barbara Richards is a 65 y.o. female, established patient, here today for cosmetic treatment of seborrheic keratoses. No Known Allergies EXAM General: NAD, pleasant, cooperative. Skin: A focused skin examination of the trunk was performed. Diagnosis/Skin findings/Assessment/Plan: #. Seborrheic Keratoses EXAM: Stuck on, waxy papules on the trunk and extremities. - Discussed benign nature of lesions. - Discussed with patient that treatment/removal will be considered cosmetic, therefore insurance will not cover it and patient will be expected to pay out of pocket, in full, at time of service. Patient quoted $200 for procedure today. - Lesions treated with LN2 today. Procedure Note: Procedure: Destruction of lesions with cryotherapy. Number: ~20 Location: Neck, chest, back, and left calf Discussed procedure and expectations including risks (including risk of hypopigmentation) and benefits. Verbal consent obtained. Frozen with LN2, 15-30 second thaw time, ONCE. There were no complications; the patient tolerated the procedure well. Post-procedure expectations and wound care were reviewed. Patient paid $200 upon leaving the clinic today for the above procedure. Note initiated by: Jennifer Scott, [facility] I, Florina Meadows, [facility], have performed the documentation for this encounter in the presence of and acting as a scribe for Kareen Yepez MD. I performed the services which were documented by the scribe, and I agree with the accuracy of the documentation in this encounter. Reviewed and signed by: Kareen Yepez MD Resident in Dermatology [facility] Patient seen in conjunction with staff program host: Lennie Rodrigues MD Department of Dermatology [facility] Lennie Rodrigues MD - 06/05/2021 3:20 PM EDT I directly supervised the Dermatology [...] of this encounter Visit Diagnoses Diagnosis Seborrheic keratosis Other seborrheic keratosis documented in this encounter Care Teams Dried Fruit Washer Relationship Specialty Start Date End Date Ana Paula Walils APRN PCP - General Family Medicine 03/12/21 07/04/[address] [place] [address] documented as of this encounter
--- OUTSIDE RECORDS SUMMARY | 2022-09-03 12:11 | XMS_ITS | Encounter Summary ---
:1955 Author Organization [facility] Address [address] [place] [address] Care Team Providers Name Role Phone Unavailable Primary Care Provider Unavailable Encounter Details Date Type Department Care Team Description 12/07/2013 Results Only [facility] Mariel Conklin MD Laboratory Services - [address] [place] [address] [address] [facility] [place], [place] [id number] [phone] Social History Tobacco Use Types Packs/Day Years Used Date Smoking Tobacco: Never Assessed Sex Assigned at Date Recorded Not on file documented as of this encounter Plan of Treatment Not on filedocumented as of this encounter Procedures Procedure Name Priority Date/Time Associated Diagnosis Comme nts PAP TEST- RESULT Routine 12/07/2013 0:00 EST Resu lts for this ONLY procedure are i n the results section. documented in this encounter Results PAP TEST- RESULT ONLY (12/07/2013 0:00 EST) Component Value Ref Test Analysis Performed At [facility] Method Time Signature Pathology CYTOPATHOLOGY REPORT JAYLON Report: [facility] Reports generated via electronic interface contain original data; however they are lacking the format of the original report. Caution should be taken when reading/interpreting unformatte d reports. Name: ? BARBARA RICHARDS ? Accession #: ? [id number] ? : ? 1955 (Age: 58) ??F ?Collect Da te: ? 12/07/2013 ? Location: ? [facility] ? Receive Date: ? 12/08/2013 ? Provider: KRISHAN CONKLIN MD Copy to: ? Final Report SPECIMEN ADEQUACY ? Satisfactory for Evaluation - transformation zone component absent GENERAL CATEGORIZATION ? Negative for Intraepithelial Lesion or Malignancy ?? Last Menstrual Period: 04/2007 Specimen/Source: ??Pap Test, Cervix/Endocervix, ThinPr ep Imaging System with manual evaluation Document reviewed and electronically signed by: ? Milton Qureshi, LOKESH(ASCP) ? Report ??Date: 12/16/2013 14:18 HPV with Pap Test ? Date Ordered: ? 12/16/2013 ? Status: ?? Keila d Out ?Date Complete: ? 12/19/2013 ? By: ??System Interface ? Date Reported: ? 12/19/2013 ? Interpretation RESULT: Negative for HPV. No E6 or E7 mRNA is detected from HPV types 16,18,31,33,35, 39,45,51,52,56,58,59,66, and 68 by white sugar boiler mediated amplification. Comments Document reviewed and electronically signed by: ? System Interface ? Report date: 12/19/2013 By the signature above, the attending physician certifies th at he/she has personally conducted a gross and/or microscopic examin ation of the described specimens and rendered or confirmed the above diagnosis. End of Report Specimen (Source) Anatomical Location Collection Method / Collectio n Time Received Time / Laterality Volume 12/07/2013 12/08/2013 Krishan Conklin MD PATHOLOGY ORDERABLES Performing Organization Address City/State/ZIP Code Phon e Number [facility] [address] [place] [address] SERVICES [facility] [address] [place] [address] documented in this encounter Visit Diagnoses Not on filedocumented in this encounter
--- OUTSIDE RECORDS SUMMARY | 2022-09-03 12:11 | XMS_ITS | Encounter Summary ---
:1955 Author Organization [facility] Address [address] [place] [address] Care Team Providers Name Role Phone Unavailable Primary Care Provider Unavailable Encounter Details Date Type Department Care Team Description 08/06/2009 Orders Only [facility] Laboratory Mars Marmolejo NP Services - [place] [address] Social History Tobacco Use Types Packs/Day Years Used Date Smoking Tobacco: Never Assessed Sex Assigned at Date Recorded Not on file documented as of this encounter Plan of Treatment Not on filedocumented as of this encounter Procedures Procedure Name Priority Date/Time Associated Comments Diagnosis HPV DETECTION, HIGH Routine 08/06/2009 15:37 Resu lts for this RISK TYPES EDT procedure are i n the results section. CYTOPATHOLOGY Routine 08/06/2009 0:00 Results for this EDT procedure are i n the results section. documented in this encounter Results HUMAN PAPILLOMA VIRUS DNA TEST (08/06/2009 15:37 EDT) [facility] Method Time Signature Specimen Cervix, IYER Description ThinPrep [facility] vial Result Negative for IYER HPV types [facility] 16, 18, 31, 33, 35, 39, 45, 51, 52, 56, 58, 59, and 68. Report Status Final IYER 08/16/2009 [facility] Specimen Anatomical Collection Method Collection Time Receive d Time (Source) Location / / Volume Laterality 08/06/2009 15:37 08/14/2009 EDT 15:37 EST Mandy Marmolejo NP MICROBIOLOGY - GENERAL ORDER TONIA Performing Organization Address City/State/ZIP Code Phon e Number [facility] [address] [place] [address] SERVICES [facility] [address] [place] [address] CYTOPATHOLOGY (08/06/2009 0:00 EDT) Component Value Ref Test Analysis Performed At [facility] Range Method Time Signature Pathology CYTOPATHOLOGY REPORT ? IYER Report: ? [facility] Reports generated via [employer] interface contain original data; ? however they are lacking the format of the original report. ? Caution should be taken when reading/interpreting unformatted reports. ? Name: ? BARBARA RICHARDS ? Accession #: ? [id number] ? : ? 1955 (Age: 53) ??F ?Collect Date: ? 08/06/2009 ? Location: ? [facility] ? Receive Date: ? 08/06/2009 ? Provider: ?MANDY M RO WLETT SEARCH MARKETING COORDINATOR ? Copy to: ? Specimen/Source: ? Pap Test, Cervix/Endocervix, ThinPrep Imaging System ? with manual evaluation ? Last Menstrual Period: ? 07/07 ? Other: ? HPVDX - HPV testing requeste d regardless of diagnosis on current ThinPrep Pap ?? test. ? SPECIMEN ADEQUACY ? Satisfactory for Eval uation ? - transformation zone compon ent present ? GENERAL CATEGORIZATION ? Negative for Intraepi thelial Lesion or Malignancy ? Document reviewed and electr onically signed by: ? Lynan Julito, CT(ASCP) ? Report Date: ??11/03/ 2009 09:20 ? End of Report ? Specimen (Source) Anatomical Location Collection Method / Collectio n Time Received Time / Laterality Volume 08/06/2009 08/06/2009 Mandy Marmolejo SEARCH MARKETING COORDINATOR PATHOLOGY ORDERABLES Performing Organization Address City/State/ZIP Code Phon e Number [facility] [address] [place] [address] SERVICES [facility] [address] [place] [address] documented in this encounter Visit Diagnoses Not on filedocumented in this encounter
--- OUTSIDE RECORDS SUMMARY | 2022-09-03 12:11 | XMS_ITS | Encounter Summary ---
:1955 Author Organization [facility] Address [address] [place] [address] Care Team Providers Name Role Phone Ana Paula Wallis RUG WEAVER Primary Care Provider Encounter Details Date Type Department Care Team Description 04/23/2020 Lab Requisition [facility] Center Abelardo Mederos, Encounter for other Pathology & MD general examination Laboratory Medicine [address] [address] [place], [place] [id number] Social History Tobacco Use Types Packs/Day Years Used Date Smoking Tobacco: Never Assessed Sex Assigned at Date Recorded Not on file documented as of this encounter Plan of Treatment Not on filedocumented as of this encounter Procedures Procedure Name Priority Date/Time Associated Diagnosis Comme nts SURGICAL PATHOLOGY Today 04/23/2020 10:23 Encounter for othe r Results for this EDT general examination procedur e are in the results section. documented in this encounter Results SURGICAL PATHOLOGY (04/23/2020 10:23 EDT) Component Value Ref Test Analysis Performed At [facility] Range Method Time Signature Final A. SOFT TISSUE OF THUMB, RIG HT, ? MASS? , EXCISION: 04/26/2020 [facility] Electronically Diagnosis - Ganglion cyst. See comment. 18:13 EDT CENTER signed by JERRY Couch SERVICES MD on 04/26 at 1813 Attestation There was 04/26/2020 [facility] Elect ronically significant 18:13 EDT CENTER signed b [place], resident/fellow LABORATORY Nara Castillo, involvement in SERVICES on 04/26/2020 the diagnostic at 18 13 evaluation of this case. By the signature below, the attending physician certifies that they have personally conducted a gross and/or microscopic examination of the described specimens and rendered or confirmed the above diagnosis. Diagnosis Deeper levels have been examined. 2019 [facility] Comment 18:13 [facility] SERVICES Clinical Right thumb mass 04/26/2020 [facility] MED[facility] History 18:13 [facility] SERVICES Gross A. Received in formalin labe lled with proper patient identification (initials L, J) and right thumb mass is a white-wilson rubbery tissue (0.9 x 0.6 x 0.3 cm). The outer surface is predominantly smooth. 04/26/2020 [facility] Description The outer surface is inked b lue. The tissue is trisected to reveal white homogeneous cut surfaces. The specimen is entirely submitted in A1. 18:13 [facility] LABOR[facility]ORY Lien Marlow 04/24/2020 9:51 SERVICES Resident/Js Graham, 04/26/2020 [facility] MEDICAL w: DO Osmar 18:13 [facility] SERVICES Scanned Images 04/26/2020 [facility] MEDICAL 18:13 [facility] SERVICES Specimen Anatomical Collection Method Collection Time Receive d Time (Source) Location / / Volume Laterality Tissue SOFT TISSUE / 04/23/2020 10:23 04/23/2020 Unknown EDT 18:35 EDT Abelardo Mederos MD PATHOLOGY ORDERABLES Performing Organization Address City/State/ZIP Code Phon e Number [facility] [address] [place] [address] SERVICES documented in this encounter Visit Diagnoses Diagnosis Encounter for other general examination documented in this encounter 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
--- OUTSIDE RECORDS SUMMARY | 2022-09-03 12:11 | XMS_ITS | Encounter Summary ---
:1955 Author Organization [facility] [place] [address] Care Team Providers Name Role Phone Caty Lake MD Primary Care Provider Encounter Details Date Type Department Care Team Description 09/16/2011 Office Visit Vascular Surgery at [facility] [place], [place] [address] Social History Tobacco Use Types Packs/Day Years Used Date Smoking Tobacco: Former Comments: minimal for one year Sex Assigned at Date Recorded Not on file documented as of this encounter Plan of Treatment Not on filedocumented as of this encounter Procedures Procedure Name Priority Date/Time Associated Diagnosis Comme nts UNLATERAL VALVULAR Routine 09/16/2011 3:06 PM Leg edema Res ults for this INCOMP EST procedure are i n the results section. 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
== END ==
PROVIDERS: PCP Nurse Practitioner Family; Visit Provider Nurse Practitioner Family
DX: M79.672 Pain in left foot (principal); M77.32 Calcaneal spur, left foot
CPT/HCPCS: 73630

== ENCOUNTER → 2022-09-15 03:10 | Outpatient (CLI) | payer MEDICARE, SELFPAY ==
--- NOTE | 2022-09-15 07:40 | DI.MAMMO_ITS ---
Exam(s) MAMMO SCREENING EXAM: MAMMO SCREENING CLINICAL HISTORY: screening,z12.39 TECHNIQUE: Mammograms were interpreted according to the usual protocol including computer analysis w [employer] CAD system, tomosynthesis and C-view imaging. COMPARISON: 2012 through 2020 FINDINGS: The breasts are composed of scattered fibroglandular densities, Breast Density category B. No suspicious masses or suspicious microcalcifications are seen. No skin thickening or abnormal axillary lymph nodes are seen. There has been no significant change from prior exams. IMPRESSION: BI-RADS Category 1, Negative mammogram Yearly screening mammography is recommended. Breast Density - Category B, scattered fibroglandular densities. A negative radiographic report should not delay biopsy if a dominant or clinically suspicious mass is present. Up to ten percent of cancers are not identified on mammography. A negative report may reinforce clinical impression. Adenosis and dense breasts may obscure an underlying neoplasm. False positive reports average 6 to 10%. Patient will receive a letter notifying them of these results.
== END ==
PROVIDERS: PCP Nurse Practitioner Family
DX: Z12.31 Encounter for screening mammogram for malignant neoplasm of breast (principal)
CPT/HCPCS: 77063; 77067

== ENCOUNTER 2022-09-26 08:50 | Outpatient (CLI) | payer MEDICARE, SELFPAY ==
--- NOTE | 2022-09-26 08:50 | DI.RAD_ITS ---
Exam(s) XR FOOT LT COMPLETE EXAM: XR FOOT LT COMPLETE CLINICAL HISTORY: left foot pain. TECHNIQUE: 2D digital imaging was performed. COMPARISON: CR XR FOOT LT COMPLETE from 09/03/2022 FINDINGS: 3 views There is no evidence of fracture nor diastasis of the Lisfranc joint. Accessory os Intermetatarsale is again evident at the Lisfranc joint level. Bipartite medial sesamoid again noted subjacent to the great toe metatarsal head. Great toe metatarsophalangeal joint appears unremarkabl e. No osseous lesions. No erosions. No pes planus. Bone density appears age-appropriate. IMPRESSION: No new significant findings. DATA REPOSITORY: RADIATION DOSE DELIVERED:
== END 2022-09-26 08:51 | disposition home or self-care (01) ==
LOC: DIORS 08:51
PROVIDERS: PCP Nurse Practitioner Family; Referring Provider Nurse Practitioner Family; Visit Provider Student in an Organized Health Care Education/Training Program
DX: M79.672 Pain in left foot (principal)
CPT/HCPCS: 99213; 73630

== ENCOUNTER 2023-02-12 01:48 | Outpatient (CLI) | payer MEDICARE, SELFPAY ==
[2023-02-12 08:29] LABS: ALT 29 U/L (14-59); AST 21 U/L (15-37); Albumin 3.7 g/dL (3.4-5.0); Alkaline Phosphatase 61 U/L (46-116); Anion Gap 8.7 mmol/L (3-11); BUN 20 mg/dL (7-18); Bilirubin, Total 0.5 mg/dL (0.2-1.0); CO2 28.3 mmol/L (21.0-32.0); Calcium 9.4 mg/dL (8.5-10.1); Calculated LDL 142 mg/dL (<100); Chloride 105 mmol/L (98-107); Cholesterol 243 mg/dL (<200); Estimated GFR 61.75 (mL/min/1.73m2); Glucose 107 mg/dL (74-106); HDL Cholesterol 69 mg/dL (40-60); Potassium 4.1 mmol/L (3.5-5.1); Sodium 142 mmol/L (136-145); TSH (W/Ref FT4) 0.16 uIU/mL (0.36-3.74); Total Protein 7.7 g/dL (6.4-8.2); Triglyceride 163 mg/dL (<150)
[2023-02-12 08:46] LABS: FREE T4 1.03 ng/dL (0.76-1.46)
== END 2023-02-12 01:49 | disposition home or self-care (01) ==
PROVIDERS: PCP Nurse Practitioner Family; Visit Provider Nurse Practitioner Family
DX: E78.5 Hyperlipidemia, unspecified (principal); E03.9 Hypothyroidism, unspecified; R63.4 Abnormal weight loss; F32.89 Other specified depressive episodes; F41.8 Other specified anxiety disorders
CPT/HCPCS: 36415; 80053; 80061; 84439; 84443

== ENCOUNTER 2023-02-27 00:35 | Outpatient (CLI) | payer MEDICARE, SELFPAY ==
--- NOTE | 2023-02-27 | DI.DEXA_ITS ---
Exam(s) XR DEXA BONE DENSITY W/WO MOE EXAM: XR DEXA BONE DENSITY W/WO MOE CLINICAL HISTORY: SCREENING FOR OSTEOPOROSIS IN POSTMENOPAUSAL WOMAN,Z78.0 TECHNIQUE: COMPARISON: No exams were available for comparison FINDINGS: Lateral Spine Image: Unremarkable. No compression deformities identified. Left hip: Total T-Score: -0.8 Total Z-Score: 0.6 T- and Z-scores: Within normal limits. There is osteopenia in the femoral neck with a T-score of -1.9 . Lumbar Spine: Total T-Score: -0.8 Total Z-Score: 1.1 T- and Z-scores: Within normal limits. There is osteopenia in the L3 vertebral body with a T-score of -1.8. IMPRESSION: No evidence of osteoporosis.
== END 2023-02-27 00:55 ==
LOC: DI 00:38
PROVIDERS: PCP Nurse Practitioner Family; Visit Provider Nurse Practitioner Family
DX: Z78.0 Asymptomatic menopausal state (principal); M85.89 Other specified disorders of bone density and structure, multiple sites; Z13.820 Encounter for screening for osteoporosis
CPT/HCPCS: 77080

== ENCOUNTER 2023-08-26 03:00 | Outpatient (CLI) | payer MEDICARE, SELFPAY ==
[2023-08-26 14:27] LABS: TSH (W/Ref FT4) 0.22 uIU/mL (0.36-3.74)
== END 2023-08-26 03:01 | disposition home or self-care (01) ==
LOC: LBO 03:00
PROVIDERS: PCP Nurse Practitioner Family; Visit Provider Nurse Practitioner Family
DX: E03.9 Hypothyroidism, unspecified (principal)
CPT/HCPCS: 36415; 84439; 84443

== ENCOUNTER → 2023-09-17 02:14 | Outpatient (CLI) | payer MEDICARE, SELFPAY ==
--- NOTE | 2023-09-17 07:00 | DI.MAMMO_ITS ---
Exam(s) MAMMO SCREENING EXAM: MAMMO SCREENING CLINICAL HISTORY: screening,z12.39 TECHNIQUE: Mammograms were interpreted according to the usual protocol including computer analysis w [employer] CAD system, tomosynthesis and C-view imaging. COMPARISON: 2015 through 2021 FINDINGS: The breasts are composed of scattered fibroglandular densities, Breast Density category B. No suspicious masses or suspicious microcalcifications are seen. No skin thickening or abnormal axillary lymph nodes are seen. There has been no significant change from prior exams. IMPRESSION: BI-RADS Category 1, Negative mammogram Yearly screening mammography is recommended. Breast Density - Category B, scattered fibroglandular densities. A negative radiographic report should not delay biopsy if a dominant or clinically suspicious mass is present. Up to ten percent of cancers are not identified on mammography. A negative report may reinforce clinical impression. Adenosis and dense breasts may obscure an underlying neoplasm. False positive reports average 6 to 10%. Patient will receive a letter notifying them of these results.
== END ==
PROVIDERS: PCP Nurse Practitioner Family; Visit Provider Nurse Practitioner Family
DX: Z12.31 Encounter for screening mammogram for malignant neoplasm of breast (principal); R92.323 Mammographic fibroglandular density, bilateral breasts
CPT/HCPCS: 77063; 77067

== ENCOUNTER 2023-10-16 02:46 | Outpatient (CLI) | payer OTHER, MEDICARE, SELFPAY ==
[2023-10-16 12:31] LABS: TSH (W/Ref FT4) 0.62 uIU/mL (0.36-3.74)
== END 2023-10-16 02:47 | disposition home or self-care (01) ==
LOC: LBO 02:48
PROVIDERS: PCP Nurse Practitioner Family; Visit Provider Nurse Practitioner Family
DX: E03.9 Hypothyroidism, unspecified (principal)
CPT/HCPCS: 36415; 84443

== ENCOUNTER 2024-04-13 02:35 | Outpatient (CLI) | payer MEDICARE, SELFPAY ==
[2024-04-13 08:44] LABS: ALT 25 U/L (14-59); AST 18 U/L (15-37); Albumin 3.9 g/dL (3.4-5.0); Alkaline Phosphatase 58 U/L (46-116); Anion Gap 8.4 mmol/L (3-11); BUN 23 mg/dL (7-18); Bilirubin, Total 0.55 mg/dL (0.2-1.0); CO2 28.6 mmol/L (21.0-32.0); Calcium 9.3 mg/dL (8.5-10.1); Calculated LDL 167 mg/dL (<100); Chloride 105 mmol/L (98-107); Cholesterol 262 mg/dL (<200); Estimated GFR 61.36 (mL/min/1.73m2); Glucose 114 mg/dL (74-106); HDL Cholesterol 79 mg/dL (40-60); Potassium 3.9 mmol/L (3.5-5.1); Sodium 142 mmol/L (136-145); TSH (W/Ref FT4) 1.13 uIU/mL (0.36-3.74); Triglyceride 82 mg/dL (<150)
[2024-04-13 09:03] LABS: Hemoglobin A1C 5.9 % (<5.7)
== END 2024-04-13 02:36 | disposition home or self-care (01) ==
PROVIDERS: PCP Nurse Practitioner Family; Visit Provider Nurse Practitioner Family
DX: Z00.00 Encounter for general adult medical examination without abnormal findings (principal)
CPT/HCPCS: 36415; 80053; 80061; 83036; 84443

== ENCOUNTER 2024-09-20 01:10 | Outpatient (CLI) | payer MEDICARE, SELFPAY ==
--- NOTE | 2024-09-20 06:30 | DI.MAMMO_ITS ---
Exam(s) MAMMO SCREENING EXAM: MAMMO SCREENING CLINICAL HISTORY: screening,z12.39. TECHNIQUE: Bilateral full field digital CC and MLO mammographic images were obtained with 3D tomosyn thesis and utilizing computer aided detection (CAD). COMPARISON: Prior mammograms were reviewed. FINDINGS: No new significant findings in left breast. In the right breast the CC view 3D imaging there is a 7 x 3 mm asymmetric density-possible nodule loc ated 5 cm in from the nipple, lateral of center on the CC view.. Further imaging of this recommended . In the right breast on the MLO view there is a superficial nodular density which is probably a skin m ole measuring 4 x 4 mm seen laterally. Unchanged from previous studies. Also in the right breast on the CC view there is an asymmetric density which is unchanged from 2022 a nd which is less concerning on this 3D imaging through this region. There are no malignant-appearing microcalcification groups in either breast. There is no significant architectural distortion nor skin thickening-retraction. IMPRESSION: 1. No radiographic evidence of malignancy in left breast. 2. Right breast asymmetric densities, 1 of which appears new, this being a possible 7 x 5 mm nodule s een on the CC view located 5 cm in from the nipple, lateral of center. Spot compression CC view and breast ultrasound recommended. BI-RADS Category 0 - Incomplete: Need additional imaging evaluation Breast Density - Category C - Heterogeneously dense Breast density Category C or D implies that the patient has dense breast tissue. Dense breast tissue can make it harder to find cancer on a mammogram. Dense breast tissue is also associated with an incr eased risk of breast cancer. This information about the result of the mammogram report was provided to the patient to raise their awareness. Use this report when you speak with the patient about their risks for breast cancer, which includes their family history. At that time, you may recommend additional screening tests (Ultrasoun d or MRI) as these tests may add significant information. A negative radiographic report should not delay biopsy if a dominant or clinically suspicious mass is present. Up to ten percent of cancers are not identified on mammography. A negative report may reinforce clinical impression. Adenosis and dense breasts may obscure an underlying neoplasm. False positive reports average 6 to 10%. Patient will receive a letter notifying them of these results.
== END 2024-09-20 01:30 ==
LOC: DI 01:10
PROVIDERS: PCP Nurse Practitioner Family; Visit Provider Nurse Practitioner Family
DX: Z12.31 Encounter for screening mammogram for malignant neoplasm of breast (principal); R92.333 Mammographic heterogeneous density, bilateral breasts
CPT/HCPCS: 77063; 77067

== ENCOUNTER 2024-09-28 03:24 | Outpatient (CLI) | payer MEDICARE, SELFPAY ==
--- NOTE | 2024-09-28 | DI.MAMMO_ITS ---
Exam(s) MAMMO SCREEN CALL BACK UNI EXAM: MAMMO SCREEN CALL BACK UNI CLINICAL HISTORY: 7 x 3 mm asymmetric density-possible nodule 5 cm from nipple, Rt breast. TECHNIQUE: Craniocaudal and mediolateral oblique Full Field Digital Mammography views of the right b reast with Computer Aided Diagnosis. COMPARISON: Comparison is made with prior examinations. FINDINGS: Mammography/Tomosynthesis: Masses/Architectural Distortion: The area of concern does not persist on the additional views. No ordonez spicious mass or area of architectural distortion is present. Microcalcifictions: No suspicious pleomorphic-type are seen. Skin Thickening/Nipple Retraction: None. IMPRESSION: 1. No evidence of malignancy is noted. 2. Unless there is more urgent need, follow-up screening mammography is recommended, as per [place] [employer] guidelines. 3. The findings were discussed with the patient on the date of the examination. BI-RADS Category 1 - Negative Breast Density - Category C - Heterogeneously dense Breast density Category C or D implies that the patient has dense breast tissue. Dense breast tissue can make it harder to find cancer on a mammogram. Dense breast tissue is also associated with an incr eased risk of breast cancer. This information about the result of the mammogram report was provided to the patient to raise their awareness. Use this report when you speak with the patient about their risks for breast cancer, which includes their family history. At that time, you may recommend additional screening tests (Ultrasoun d or MRI) as these tests may add significant information. A negative radiographic report should not delay biopsy if a dominant or clinically suspicious mass is present. Up to ten percent of cancers are not identified on mammography. A negative report may reinforce clinical impression. Adenosis and dense breasts may obscure an underlying neoplasm. False positive reports average 6 to 10%. Patient will receive a letter notifying them of these results.
== END 2024-09-28 03:44 ==
LOC: DI 03:24
PROVIDERS: PCP Nurse Practitioner Family; Visit Provider Nurse Practitioner Family
DX: D24.1 Benign neoplasm of right breast (principal); Z12.31 Encounter for screening mammogram for malignant neoplasm of breast; R92.323 Mammographic fibroglandular density, bilateral breasts
CPT/HCPCS: 77063; 77067

== ENCOUNTER 2024-09-30 01:04 | Outpatient (CLI) | payer MEDICARE, SELFPAY | END 2024-09-30 01:05 | disposition home or self-care (01) | LOC: LBO 01:04 | PROVIDERS: PCP Nurse Practitioner Family; Visit Provider Nurse Practitioner Family | DX: E03.9 Hypothyroidism, unspecified (principal) | CPT/HCPCS: 36415; 84443 ==

== ENCOUNTER 2024-11-23 04:15 | Outpatient (CLI) | payer MEDICARE, SELFPAY ==
[2024-11-23 15:54] LABS: TSH (W/Ref FT4) 0.32 uIU/mL (0.36-3.74)
== END 2024-11-23 04:16 | disposition home or self-care (01) ==
PROVIDERS: PCP Nurse Practitioner Family; Visit Provider Nurse Practitioner Family
DX: E03.9 Hypothyroidism, unspecified (principal)
CPT/HCPCS: 36415; 84439; 84443

== ENCOUNTER 2025-02-23 01:39 | Outpatient (CLI) | payer MEDICARE, SELFPAY ==
[2025-02-23 15:53] LABS: Hemoglobin A1C 5.8 % (<5.7)
[2025-02-23 16:53] LABS: ALT 22 U/L (14-59); AST 21 U/L (15-37); Albumin 3.8 g/dL (3.4-5.0); Alkaline Phosphatase 59 U/L (46-116); Anion Gap 9.9 mmol/L (3-11); BUN 15 mg/dL (7-18); Bilirubin, Total 0.4 mg/dL (0.2-1.0); CO2 25.1 mmol/L (21.0-32.0); CREATININE 0.9 mg/dL (0.55-1.02); Calcium 9.1 mg/dL (8.5-10.1); Calculated LDL 134 mg/dL (<100); Chloride 104 mmol/L (98-107); Cholesterol 234 mg/dL (<200); Glucose 111 mg/dL (74-106); HDL Cholesterol 81 mg/dL (>or=50); Potassium 3.5 mmol/L (3.5-5.1); Sodium 139 mmol/L (136-145); TSH (W/Ref FT4) 0.21 uIU/mL (0.36-3.74); Total Protein 7.7 g/dL (6.4-8.2); Triglyceride 96 mg/dL (<150)
[2025-02-23 17:28] LABS: FREE T4 1.23 ng/dL (0.76-1.46)
== END 2025-02-23 01:40 | disposition home or self-care (01) ==
PROVIDERS: PCP Nurse Practitioner Family; Visit Provider Nurse Practitioner Family
DX: E03.9 Hypothyroidism, unspecified (principal); R73.03 Prediabetes; E78.5 Hyperlipidemia, unspecified
CPT/HCPCS: 36415; 80053; 80061; 83036; 84439; 84443

== ENCOUNTER 2025-05-25 03:53 | Outpatient (CLI) | payer MEDICARE, SELFPAY ==
[2025-05-25 17:39] LABS: TSH (W/Ref FT4) 1.22 uIU/mL (0.36-3.74); Vitamin D 25 Total 30 ng/mL (30-100)
== END 2025-05-25 03:54 | disposition home or self-care (01) ==
PROVIDERS: PCP Nurse Practitioner Family; Visit Provider Nurse Practitioner Family
DX: E03.9 Hypothyroidism, unspecified (principal); M85.80 Other specified disorders of bone density and structure, unspecified site
CPT/HCPCS: 36415; 82306; 84443

== ENCOUNTER → 2025-09-22 01:11 | Outpatient (CLI) | payer MEDICARE, SELFPAY ==
--- NOTE | 2025-09-22 08:45 | DI.MAMMO_ITS ---
Exam(s) MAMMO SCREENING EXAM: MAMMO SCREENING CLINICAL HISTORY: screening,Z12.39 TECHNIQUE: Mammograms were interpreted according to the usual protocol including computer analysis with CAD system, tomosynthesis and C-view imaging. COMPARISON: 2015 through 2023 FINDINGS: The breasts are composed of scattered fibroglandular densities, Breast Density category B. No suspicious masses or suspicious microcalcifications are seen. No skin thickening or abnormal axillary lymph nodes are seen. There has been no significant change from prior exams. IMPRESSION: BI-RADS Category 1, Negative mammogram Yearly screening mammography is recommended. Breast Density - Category B - There are scattered areas of fibroglandular density. Breast density Category C or D implies that the patient has dense breast tissue. Dense breast tissue can make it harder to find cancer on a mammogram. Dense breast tissue is also associated with an increased risk of breast cancer. This information about the result of the mammogram report was provided to the patient to raise their awareness. Use this report when you speak with the patient about their risks for breast cancer, which includes their family history. At that time, you may recommend additional screening tests (Ultrasound or MRI) as these tests may add significant information. A negative radiographic report should not delay biopsy if a dominant or clinically suspicious mass is present. Up to ten percent of cancers are not identified on mammography. A negative report may reinforce clinical impression. Adenosis and dense breasts may obscure an underlying neoplasm. False positive reports average 6 to 10%. Patient will receive a letter notifying them of these results.
== END ==
LOC: DI 01:11
PROVIDERS: PCP Nurse Practitioner Family; Visit Provider Nurse Practitioner Family
DX: Z12.31 Encounter for screening mammogram for malignant neoplasm of breast (principal); E03.9 Hypothyroidism, unspecified
CPT/HCPCS: 77063; 77067